=== PATIENT | male | born 1985 | race Caucasian/White ===

== ENCOUNTER 2017-08-25 13:06 | Emergency (ER) | payer SELFPAY ==
--- NOTE | 2017-08-25 15:20 | RAD REPORT ---
EXAM DESCRIPTION: RAD - Chest Single View - 08/25/2017 3:13 pm CLINICAL HISTORY: Chest pain, cough and congestion COMPARISON: None. TECHNIQUE: AP portable chest image was obtained 1505 hours . FINDINGS: Lungs are clear. Heart and vasculature are normal. No measurable pleural effusion and no p neumothorax. No gross bony abnormality seen. No acute aortic findings suspected. IMPRESSION: No acute cardiopulmonary process. No significant interval change.
[2017-08-25 16:13] LABS: Albumin 5.1 g/dL (3.2-5.5)
[2017-08-25 16:16] LABS: Absolute Monocytes 0.8 K/uL (0.1-1.3); Absolute Neutrophil 10.5 K/uL (1.8-8.0); Basophils % 0.2 % (0-1.3); Eosinophils % 0.3 % (0-4.4); Hematocrit 46.6 % (39.6-49.0); Lymphocytes % 8.4 % (15.3-44.8); MCH 28.5 pg (27.0-35.0); MCV 85.3 fL (80-100); Monocytes % 6.6 % (3.3-12.3); Protime INR 0.96; RBC Red Blood Cell Count 5.46 M/uL (4.33-5.43)
[2017-08-25 16:17] LABS: Potassium 3.6 mEq/L (3.6-5.0)
--- NOTE | 2017-08-25 17:04 | ER ---
Nurse's Notes [facility] Name: Emiliano Boothe Age: 31 yrs Sex: Male : 1985 Arrival Date: 08/25/2017 Time: 13:10 Bed 30 Private MD: Diagnosis: Chest pain, unspecified Presentation: 08/25 13:25 Presenting complaint: Patient states: R anterior chest pain that is worse when taking a ph deep breath. Pain is worse on palpation. "It might be a pulled muscle or something.". Transition of care: patient was not received from another setting of care. Onset of symptoms was August 23, 2017. Care prior to arrival: None. 13:25 Method Of Arrival: Ambulatory ph 13:25 Acuity: JEFFRY 3 ph Historical: - Allergies: 13:28 No Known Allergies; ph - Immunization history:: Adult Immunizations up to date. - Social history:: Smoking status: Patient/guardian denies using tobacco. Screenin:05 Abuse screen: Denies threats or abuse. Nutritional screening: No deficits noted. rk2 Tuberculosis screening: No symptoms or risk factors identified. Fall Risk None identified. Assessment: 16:06 General: Appears in no apparent distress. slender, well groomed, emaciated, well rk2 nourished, Behavior is calm, cooperative. Pain: Pain does not radiate. Pain began gradually. Neuro: Level of Consciousness is alert, obeys commands, Oriented to person, place, time, situation. Cardiovascular: Rhythm is sinus rhythm. Respiratory: Airway is patent Respiratory effort is even, unlabored, Respiratory pattern is regular, symmetrical. Derm: Skin is pink, warm \\T\\ dry. 16:30 Reassessment: Pt. resting in room, mother \\T\\ bedside... pt. appears to be in no obvious rk2 distress. Voiced no needs \\T\\ this time. 17:26 Reassessment: Reviewed DC instructions and prescriptions with pt... IV removed. Pt. rk2 able to ambulate out on his own without difficulty. Vital Signs: 13:28 BP 116 / 79; Pulse 80; Resp 16; Temp 98.2(TE); Pulse Ox 100% on R/A; Weight 63.5 kg; ph Height 5 ft. 9 in. (175.26 cm); Pain 6/10; 16:30 BP 115 / 73; Pulse 84; Resp 16; Pulse Ox 100% on R/A; rk2 17:27 BP 111 / 73; Pulse 84; Resp 16; Pulse Ox 99% ; rk2 13:28 Body Mass Index 20.67 (63.50 kg, 175.26 cm) ED Course: 13:10 Patient arrived in ED. as 13:27 Triage completed. ph 13:28 Arm band placed on left wrist. ph 15:09 Malik Sanchez NP is PHCP. pm1 15:09 Lalit Manrique MD is Attending Physician. pm1 15:10 Patient moved to radiology. kp1 15:11 Patient moved back from radiology. kp1 15:14 Carissa Bravo, MARTHA is Primary Nurse. rk2 16:05 Patient has correct armband on for positive identification. Bed in low position. Call rk2 light in reach. lunchroom monitor on. Pulse ox on. 16:05 Inserted saline lock: 20 gauge in left antecubital area, using aseptic technique. rk2 Patient maintains SpO2 saturation greater than 95% on room air. 16:12 D-Dimer Sent. rk2 16:13 XRAY Chest (1 view) Sent. rk2 16:47 BNP Sent. rk2 16:47 CMP Sent. rk2 16:47 Ptt, Activated Sent. rk2 16:47 PT-INR Sent. rk2 16:47 CBC with Diff Sent. rk2 17:27 No provider procedures requiring assistance completed. IV discontinued. rk2 Administered Medications: No medications were administered Outcome: 17:04 Discharge ordered by . pm1 17:27 Discharged to home ambulatory. rk2 17:27 Condition: good 17:27 Discharge instructions given to patient, Prescriptions given X 2. 17:28 Patient left the ED. rk2 Signatures: Batsheva Culp Patricia, RN RN Malik Sanchez NP HOSTESS CASHIER pm1 Flower Franco kp1 Carissa Bravo, MARTHA RN rk2
--- NOTE | 2017-08-25 17:04 | EDPHYS ---
Physician Documentation [facility] Name: Emiliano Boothe Age: 31 yrs Sex: Male : 1985 Arrival Date: 08/25/2017 Time: 13:10 Bed 30 Private MD: ED Physician Lalit Manrique HPI: 08/25 15:51 This 31 yrs old Male presents to ER via Ambulatory with complaints of Chest pm1 Pain, Shortness Of Breath. 15:51 The patient or guardian reports chest pain that is located primarily in the anterior pm1 chest wall, right. The pain does not radiate. Associated signs and symptoms: Pertinent positives: cough, shortness of breath, Pertinent negatives: abdominal pain, dizziness, headache, nausea, palpitations, vomiting. The chest pain is described as sharp. Modifying factors: the symptoms are aggravated by deep breath, palpation of area, Moving right arm. The patient has not recently seen a physician, out of town, in [place]. Historical: - Allergies: 13:28 No Known Allergies; ph - Immunization history:: Adult Immunizations up to date. - Social history:: Smoking status: Patient/guardian denies using tobacco. ROS: 15:51 Constitutional: Negative for fever, chills, and weight loss, Eyes: Negative for injury, pm1 pain, redness, and discharge, ENT: Negative for injury, pain, and discharge, Neck: Negative for injury, pain, and swelling. 15:51 Abdomen/GI: Negative for abdominal pain, nausea, vomiting, diarrhea, and constipation, Back: Negative for injury and pain, : Negative for injury, bleeding, discharge, and swelling, MS/Extremity: Negative for injury and deformity, Skin: Negative for injury, rash, and discoloration, Neuro: Negative for headache, weakness, numbness, tingling, and seizure. 15:51 Cardiovascular: Positive for chest pain, Negative for edema, palpitations. 15:51 Respiratory: Positive for cough, shortness of breath, Pain with deep breathing, Negative for dyspnea on exertion. Exam: 15:51 Constitutional: This is a well developed, well nourished patient who is awake, alert, pm1 and in no acute distress. Head/Face: Normocephalic, atraumatic. Neck: Trachea midline, no thyromegaly or masses palpated, and no cervical lymphadenopathy. Supple, full range of motion without nuchal rigidity, or vertebral point tenderness. No Meningismus. 15:51 Cardiovascular: Regular rate and rhythm with a normal S1 and S2. No gallops, murmurs, or rubs. Normal PMI, no JVD. No pulse deficits. Respiratory: Lungs have equal breath sounds bilaterally, clear to auscultation and percussion. No rales, rhonchi or wheezes noted. No increased work of breathing, no retractions or nasal flaring. Abdomen/GI: Soft, non-tender, with normal bowel sounds. No distension or tympany. No guarding or rebound. No evidence of tenderness throughout. Back: No spinal tenderness. No costovertebral tenderness. Full range of motion. Skin: Warm, dry with normal turgor. Normal color with no rashes, no lesions, and no evidence of cellulitis. MS/ Extremity: Pulses equal, no cyanosis. Neurovascular intact. Full, normal range of motion. 15:51 Neuro: Awake and alert, GCS 15, oriented to person, place, time, and situation. Motor strength 5/5 in all extremities. Sensory grossly intact. Normal gait. 15:51 Chest/axilla: Inspection: normal, Palpation: crepitus, is not appreciated, tenderness, of the anterior aspect of right upper chest, that totally reproduces the patient's complaints. Vital Signs: 13:28 BP 116 / 79; Pulse 80; Resp 16; Temp 98.2(TE); Pulse Ox 100% on R/A; Weight 63.5 kg; ph Height 5 ft. 9 in. (175.26 cm); Pain 6/10; 16:30 BP 115 / 73; Pulse 84; Resp 16; Pulse Ox 100% on R/A; rk2 17:27 BP 111 / 73; Pulse 84; Resp 16; Pulse Ox 99% ; rk2 13:28 Body Mass Index 20.67 (63.50 kg, 175.26 cm) ph MDM: 15:16 Patient medically screened. pm1 16:20 Data reviewed: vital signs. pm1 17:03 Data interpreted: Pulse oximetry: on room air is 100 %. Interpretation: normal. pm1 Counseling: I had a detailed discussion with the patient and/or guardian regarding: the historical points, exam findings, and any diagnostic results supporting the discharge/admit diagnosis, lab results, radiology results, the need for outpatient follow up, to return to the emergency department if symptoms worsen or persist or if there are any questions or concerns that arise at home. 08/25 15:25 Order name: Ptt, Activated pm1 08/25 15:25 Order name: PT-INR pm08/25 15:25 Order name: CBC with Diff pm1 08/25 15:25 Order name: Troponin (emerg Dept Use Only) pm1 08/25 15:25 Order name: CMP pm1 08/25 15:25 Order name: BNP pm1 08/25 15:59 Order name: D-Dimer pm1 08/25 16:10 Order name: Comprehensive Metabolic Panel; Complete Time: 17:02 EDMS 08/25 16:17 Order name: Protime (+INR); Complete Time: 17:02 EDMS 08/25 16:17 Order name: PTT, Activated Partial Thromb; Complete Time: 17:02 EDMS 08/25 16:17 Order name: D-Dimer; Complete Time: 17:02 EDMS 08/25 16:17 Order name: Troponin (Emerg Dept Use Only); Complete Time: 17:02 EDMS 08/25 16:20 Order name: BNP B-Type Natriuretic Peptide; Complete Time: 17:02 EDMS 08/25 16:23 Order name: CBC with Automated Diff; Complete Time: 17:02 EDMS 08/25 13:29 Order name: XRAY Chest (1 view) 08/25 15:20 Order name: RAD; Complete Time: 15:23 EDMS 08/25 15:25 Order name: EKG; Complete Time: 15:26 pm1 08/25 15:25 Order name: Cardiac monitoring; Complete Time: 15:51 pm1 08/25 15:25 Order name: EKG - Nurse/Tech; Complete Time: 16:56 pm1 08/25 15:25 Order name: IV Saline Lock; Complete Time: 15:51 pm1 08/25 15:25 Order name: Labs collected and sent; Complete Time: 15:51 pm1 08/25 15:25 Order name: O2 Per Protocol; Complete Time: 15:51 pm1 08/25 15:25 Order name: O2 Sat Monitoring; Complete Time: 15:51 pm1 Administered Medications: No medications were administered Disposition: 08/25/17 17:04 Discharged to Home. Impression: Chest pain, unspecified. - Condition is Stable. - Discharge Instructions: Nonspecific Chest Pain, Chest Wall Pain. - Prescriptions for Naprosyn 500 mg Oral Tablet - take 1 tablet by ORAL route every 12 hours As needed take with food; 30 tablet. Cyclobenzaprine 10 mg Oral Tablet - take 1 tablet by ORAL route every 8 hours As needed; 30 tablet. - Medication Reconciliation Form, Thank You Letter form. - Follow up: Emergency Department; When: As needed; Reason: Worsening of condition. Follow up: Private Physician; When: 2 - 3 days; Reason: Recheck today's complaints, Continuance of care, Re-evaluation by your physician. - Problem is new. - Symptoms have improved. Addendum: 08/29/2017 07:24 Co-signature as Attending Physician, Lalit Manrique MD. g s Signatures: Dispatcher [employer] EDME Bryanna Mcdaniels, RN RN Malik Segura, KARLA [employer] INSULATION SUPERVISOR pm1 Lalit Manrique MD MD Carissa Bravo RN RN rk2
--- NOTE | 2017-08-25 20:08 | EKG ---
Test Date: 2017-08-25 Test Time: 16:00:41 Therapeutic Radiologist: DIEGO MEASUREMENT RESULTS: Intervals: Rate: 89 OK: 140 QRSD: 84 QT: 358 QTc: 435 [place]: P: 62 OK: 140 QRS: 25 T: 53 INTERPRETIVE STATEMENTS: Normal sinus rhythm with sinus arrhythmia Normal ECG No previous ECG available for comparison Electronically Signed On 08-25-17 20:07:48 CDT by Iggy Perez
== END 2017-08-25 17:28 | disposition home or self-care (01) ==
LOC: ER 13:06
DX: R07.9 Chest pain, unspecified (principal)
CPT/HCPCS: 36415; 71045; 80053; 83880; 84484; 85025; 85379; 85610; 85730; 93005; 99285

== ENCOUNTER 2019-03-08 18:00 | Emergency (ER) | payer SELFPAY ==
[2019-03-08 20:24] LABS: Urine Blood TRACE (NEG); Urine Glucose NEGATIVE (NEG); Urine Protein NEGATIVE (NEG); Urine Specific Gravity <1.005 (1.005-1.030)
[2019-03-08] MEDS ORDERED: LACTULOSE 20 GM/30 ML UCUP ONE (20:54)
--- NOTE | 2019-03-08 22:36 | ER ---
Nurse's Notes [facility] Name: Emiliano Boothe Age: 33 yrs Sex: Male : 1985 Arrival Date: 03/08/2019 Time: 18:04 Bed 26 Private MD: Diagnosis: Constipation, unspecified Presentation: 03/08 18:13 Presenting complaint: Patient states: Abdominal pain since Saturday. Reports aj1 constipation and bloating. Denies nausea, vomiting, fever. Transition of care: patient was not received from another setting of care. Onset of symptoms was March 2019. Risk Assessment: Do you want to hurt yourself or someone else? Patient reports no desire to harm self or others. Initial Sepsis Screen: Does the patient meet any 2 criteria? No. Patient's initial sepsis screen is negative. Does the patient have a suspected source of infection? No. Patient's initial sepsis screen is negative. Care prior to arrival: None. 18:13 Method Of Arrival: Ambulatory aj 18:13 Acuity: JEFFRY 3 aj1 Triage Assessment: 18:17 General: Appears in no apparent distress. comfortable, Behavior is calm, cooperative, aj1 appropriate for age. Pain: Complains of pain in abdomen Pain currently is 2 out of 10 on a pain scale. Neuro: Level of Consciousness is awake, alert, obeys commands. Cardiovascular: Patient's skin is warm and dry. Respiratory: Airway is patent Respiratory effort is even, unlabored, Respiratory pattern is regular, symmetrical. GI: Reports upper abdominal pain, bloating, constipation. Historical: - Allergies: 18:17 No Known Allergies; aj1 - Home Meds: 18:17 Claritin Oral [Active]; aj1 - PMHx: 18:17 GERD; bicuspid aorta; aj1 - Immunization history:: Flu vaccine is not up to date. - Social history:: Smoking status: Patient/guardian denies using tobacco. - Ebola Screening: : Patient denies travel to an Ebola-affected area in the 21 days before illness onset. Screenin:36 Abuse screen: Denies threats or abuse. Denies injuries from another. Nutritional wh screening: No deficits noted. Tuberculosis screening: No symptoms or risk factors identified. Fall Risk None identified. Assessment: 19:37 General: Appears in no apparent distress. Behavior is calm, cooperative, appropriate wh for age. Pain: Denies pain. Neuro: Level of Consciousness is awake, alert, obeys commands. Cardiovascular: Heart tones S1 S2. Respiratory: Airway is patent Respiratory effort is even, unlabored, Respiratory pattern is regular, symmetrical, Breath sounds are clear bilaterally. GI: Abdomen is flat, non-distended, Bowel sounds present X 4 quads. Abd is soft and non tender X 4 quads. Reports on and off constipation and diarrhea. : No signs and/or symptoms were reported regarding the genitourinary system. EENT: No signs and/or symptoms were reported regarding the EENT system. Derm: Skin is intact, is healthy with good turgor, Skin is pink, warm \T\ dry. normal. Musculoskeletal: Circulation, motion, and sensation intact. 20:45 Reassessment: Patient appears in no apparent distress at this time. No changes from previously documented assessment. Patient and/or family updated on plan of care and expected duration. Pain level reassessed. Patient is alert, oriented x 3, equal unlabored respirations, skin warm/dry/pink. Patient denies pain at this time. 21:30 Reassessment: Patient appears in no apparent distress at this time. No changes from previously documented assessment. Patient and/or family updated on plan of care and expected duration. Pain level reassessed. Patient is alert, oriented x 3, equal unlabored respirations, skin warm/dry/pink. Patient denies pain at this time. 22:29 Reassessment: Patient appears in no apparent distress at this time. No changes from previously documented assessment. Patient and/or family updated on plan of care and expected duration. Pain level reassessed. Patient is alert, oriented x 3, equal unlabored respirations, skin warm/dry/pink. Vital Signs: 18:17 BP 113 / 72; Pulse 77; Resp 16; Temp 98.0; Pulse Ox 100% on R/A; Weight 63.96 kg (R); aj1 Height 5 ft. 9 in. (175.26 cm) (R); Pain 2/10; 19:39 BP 111 / 65; Pulse 76; Resp 18; Pulse Ox 100% on R/A; wh 20:30 BP 108 / 73; Pulse 75; Resp 18; Pulse Ox 100% on R/A; wh 21:20 BP 120 / 70; Pulse 75; Resp 18; Pulse Ox 100% on R/A; mg2 22:30 BP 112 / 78; Pulse 71; Resp 18; Pulse Ox 100% on R/A; wh 18:17 Body Mass Index 20.82 (63.96 kg, 175.26 cm) [facility] ED Course: 18:04 Patient arrived in ED. as 18:16 Triage completed. aj1 18:17 Arm band placed on Patient placed in waiting room, Patient notified of wait time. [facility] 19:05 Courtney Parker is Primary Nurse. 19:24 Terrence Beauchamp MD is Attending Physician. tw4 19:36 Patient has correct armband on for positive identification. Bed in low position. Call light in reach. Side rails up X 1. Pulse ox on. NIBP on. 22:19 Abdomen 1 View (KUB) XRAY In Process Unspecified. EDMI 22:35 Terrence Beauchamp MD is Referral Physician. tw4 22:44 No provider procedures requiring assistance completed. Patient did not have IV access during this emergency room visit. Administered Medications: 20:54 Drug: Lactulose 20 grams Volume: 30 ml; Route: PO; 22:44 Follow up: Response: No adverse reaction Outcome: 22:36 Discharge ordered by . tw4 22:44 Discharged to home ambulatory, with family. 22:44 Condition: good 22:44 Discharge instructions given to patient, Instructed on discharge instructions, follow up and referral plans. medication usage, POC Constipation and High Fiber Diet Demonstrated understanding of instructions, follow-up care, medications, POC Prescriptions given X 2. 22:45 Patient left the ED. Signatures: Dispatcher [employer] EDMI Harriett Fierro, RN RN aj1 Batsheva Culp as Courtney Parker Terrence Beauchamp MD MD tw4 Antonio James RN RN mg2
--- NOTE | 2019-03-08 22:36 | EDPHYS ---
Physician Documentation [facility] Name: Emiliano Boothe Age: 33 yrs Sex: Male : 1985 Arrival Date: 03/08/2019 Time: 18:04 Bed 26 Private MD: ED Physician Terrence Beauchamp HPI: 03/08 22:09 This 33 yrs old Male presents to ER via Ambulatory with complaints of tw4 Abdominal Problem. 22:09 The patient presents with abdominal pain that is diffuse. Onset: The symptoms/episode tw4 began/occurred yesterday. The symptoms do not radiate. Modifying factors: The symptoms are alleviated by nothing, the symptoms are aggravated by nothing. Severity of pain: Pertinent positives: constipation, At its worst the pain was mild. Historical: - Allergies: 18:17 No Known Allergies; aj1 - Home Meds: 18:17 Claritin Oral [Active]; aj1 - PMHx: 18:17 GERD; bicuspid aorta; aj1 - Immunization history:: Flu vaccine is not up to date. - Social history:: Smoking status: Patient/guardian denies using tobacco. - Ebola Screening: : Patient denies travel to an Ebola-affected area in the 21 days before illness onset. ROS: 22:09 Constitutional: Negative for fever, chills, and weight loss, Eyes: Negative for injury, tw4 pain, redness, and discharge, ENT: Negative for injury, pain, and discharge, Cardiovascular: Negative for chest pain, palpitations, and edema, Respiratory: Negative for shortness of breath, cough, wheezing, and pleuritic chest pain, Back: Negative for injury and pain, MS/Extremity: Negative for injury and deformity, Skin: Negative for injury, rash, and discoloration, Neuro: Negative for headache, weakness, numbness, tingling, and seizure. 22:09 Abdomen/GI: Positive for constipation, Negative for abdominal pain, nausea and vomiting, nausea, vomiting, and diarrhea, nausea, vomiting, abdominal cramps, abdominal distension, anorexia, dysphagia, black/tarry stool, rectal pain, rectal bleeding, bowel incontinence. Exam: 22:09 Constitutional: This is a well developed, well nourished patient who is awake, alert, tw4 and in no acute distress. Head/Face: Normocephalic, atraumatic. Chest/axilla: Normal chest wall appearance and motion. Nontender with no deformity. No lesions are appreciated. Cardiovascular: Regular rate and rhythm with a normal S1 and S2. No gallops, murmurs, or rubs. Normal PMI, no JVD. No pulse deficits. Respiratory: Lungs have equal breath sounds bilaterally, clear to auscultation and percussion. No rales, rhonchi or wheezes noted. No increased work of breathing, no retractions or nasal flaring. MS/ Extremity: Pulses equal, no cyanosis. Neurovascular intact. Full, normal range of motion. Neuro: Awake and alert, GCS 15, oriented to person, place, time, and situation. Cranial nerves II-XII grossly intact. Motor strength 5/5 in all extremities. Sensory grossly intact. Cerebellar exam normal. Normal gait. Vital Signs: 18:17 BP 113 / 72; Pulse 77; Resp 16; Temp 98.0; Pulse Ox 100% on R/A; Weight 63.96 kg (R); 1 Height 5 ft. 9 in. (175.26 cm) (R); Pain 2/10; 19:39 BP 111 / 65; Pulse 76; Resp 18; Pulse Ox 100% on R/A; wh 20:30 BP 108 / 73; Pulse 75; Resp 18; Pulse Ox 100% on R/A; wh 21:20 BP 120 / 70; Pulse 75; Resp 18; Pulse Ox 100% on R/A; mg2 22:30 BP 112 / 78; Pulse 71; Resp 18; Pulse Ox 100% on R/A; wh 18:17 Body Mass Index 20.82 (63.96 kg, 175.26 cm) [facility] MDM: 19:24 Patient medically screened. tw4 03/08 19:43 Order name: Urine Dipstick--Ancillary (enter results) em1 03/08 20:48 Order name: Abdomen 1 View (KUB) XRAY tw4 03/08 19:43 Order name: Urine Dipstick-Ancillary (obtain specimen); Complete Time: 19:43 em1 Administered Medications: 20:54 Drug: Lactulose 20 grams Volume: 30 ml; Route: PO; 22:44 Follow up: Response: No adverse reaction Disposition: 03/08/19 22:36 Discharged to Home. Impression: Constipation, unspecified. - Condition is Stable. - Discharge Instructions: Constipation, Adult, High-Fiber Diet. - Prescriptions for Dulcolax 10 mg Rectal Suppository - insert 1 suppository by RECTAL route every 6 hours As needed; 10 suppository. Miralax 17 gram/dose Oral - take 1 packet by ORAL route once daily dilute powder in 8 ounces of water or juice; 1 packet. - Medication Reconciliation Form, Thank You Letter, Antibiotic Education, Prescription Opioid Use form. - Follow up: Terrence Beauchamp MD; When: Upon discharge from the Emergency Department; Reason: If symptoms return, Recheck today's complaints, Continuance of care. - Problem is new. - Symptoms are unchanged. Signatures: Dispatcher [employer] EDMS Harriett Fierro RN RN archie1 Praveen Culp Courtney Sosa Terrence Beauchamp MD MD tw4 Corrections: (The following items were deleted from the chart) 22:45 22:36 03/08/2019 22:36 Discharged to Home. Impression: Constipation, unspecified. wh Condition is Stable. Forms are Medication Reconciliation Form, Thank You Letter, Antibiotic Education, Prescription Opioid Use. Follow up: Terrence Beauchamp; When: Upon discharge from the Emergency Department; Reason: If symptoms return, Recheck today's complaints, Continuance of care. Problem is new. Symptoms are unchanged. tw4
[2019-03-08 22:55] VITALS: TEMP 98; O2SAT 100
[2019-03-08 23:00] VITALS: BP 112/78
--- NOTE | 2019-03-09 09:14 | RAD REPORT ---
EXAM DESCRIPTION: RAD - Abdomen 1 View (KUB) - 03/08/2019 10:30 pm CLINICAL HISTORY: ABD PAIN COMPARISON: No comparisons FINDINGS: Bowel gas pattern is non-specific. No obstruction, free air or pneumatosis. No suspicious calcifications. No abnormal stool volume in the colon. No significant bony findings IMPRESSION: Negative KUB examination.
== END 2019-03-08 22:45 | disposition home or self-care (01) ==
LOC: ER 18:00
DX: K59.00 Constipation, unspecified (principal)
CPT/HCPCS: 74018; 81003; 99284

== ENCOUNTER 2019-03-11 13:54 | Emergency (ER) | payer SELFPAY ==
--- NOTE | 2019-03-11 15:30 | RAD REPORT ---
EXAM DESCRIPTION: Luis Carlos Hammer (2 Views)03/11/2019 3:03 pm CLINICAL HISTORY: Cough COMPARISON: 2018 FINDINGS: The lungs are mildly hyperaerated The lungs appear clear of acute infiltrate. The heart is normal size IMPRESSION: No acute abnormalities displayed
[2019-03-11 15:52] LABS: Potassium 3.3 mmol/L (3.5-5.1)
[2019-03-11 16:01] LABS: Urine Blood NEGATIVE (NEG); Urine Glucose NEGATIVE (NEG); Urine Protein NEGATIVE (NEG); Urine Specific Gravity <1.005 (1.005-1.030)
[2019-03-11 16:21] LABS: Absolute Lymphocytes (CBC) 0.9 K/uL (0.7-4.9); Basophils % 0.5 % (0-1.3); Hematocrit 45.2 % (39.6-49.0); Lymphocytes % 12.6 % (15.3-44.8); MPV 8.5 fL (7.6-11.3)
--- NOTE | 2019-03-11 16:31 | ER ---
Nurse's Notes [facility] Name: Emiliano Boothe Age: 33 yrs Sex: Male : 1985 Arrival Date: 03/11/2019 Time: 13:55 Bed 15 Private MD: Diagnosis: Person with feared health complaint in whom no diagnosis is made;Dyspnea Presentation: 03/11 14:01 Presenting complaint: Patient states: "I was seen here a few days ago for abdominal aa5 bloating and I am still feeling the same and now I am short of breath". Pt's mother also reports cough that began "years ago". Transition of care: patient was not received from another setting of care. Onset of symptoms was 2018. Risk Assessment: Do you want to hurt yourself or someone else? Patient reports no desire to harm self or others. Initial Sepsis Screen: Does the patient meet any 2 criteria? No. Patient's initial sepsis screen is negative. Does the patient have a suspected source of infection? No. Patient's initial sepsis screen is negative. Care prior to arrival: None. 14:01 Acuity: JEFFRY 3 aa5 14:01 Method Of Arrival: Ambulatory aa5 Historical: - Allergies: 14:03 No Known Allergies; aa5 - Home Meds: 14:03 Miralax Oral [Active]; Claritin Oral [Active]; aa5 - PMHx: 14:03 bicuspid aorta; GERD; aa5 - PSHx: 14:03 None; aa5 - Immunization history:: Flu vaccine is not up to date. - Social history:: Smoking status: Patient/guardian denies using tobacco. - Ebola Screening: : No symptoms or risks identified at this time. Screenin:40 Abuse screen: Denies threats or abuse. Denies injuries from another. Nutritional jl7 screening: No deficits noted. Tuberculosis screening: No symptoms or risk factors identified. Fall Risk IV access (20 points). Total Valle Fall Scale indicates No Risk (0-24 pts). Assessment: 15:25 General: Appears in no apparent distress. uncomfortable, slender, Behavior is calm, jl7 cooperative. Pain: Denies pain. Neuro: Level of Consciousness is awake, alert, obeys commands. Cardiovascular: Rhythm is regular. Respiratory: Reports cough that is non-productive, Airway is patent Respiratory effort is even, unlabored, Respiratory pattern is regular, symmetrical, Breath sounds are clear bilaterally. GI: Abdomen is flat, non-distended. : Reports burning with urination, inability to void. Derm: Skin is dry, Skin is pale, Skin temperature is warm. 16:25 Reassessment: Patient appears in no apparent distress at this time. No changes from jl7 previously documented assessment. Patient and/or family updated on plan of care and expected duration. Pain level reassessed. Patient is alert, oriented x 3, equal unlabored respirations, skin warm/dry/pink. Vital Signs: 14:03 BP 113 / 70; Pulse 90; Resp 16 S; Temp 98.0(TE); Pulse Ox 100% on R/A; Weight 63.5 kg aa5 (R); Height 5 ft. 9 in. (175.26 cm) (R); Pain 5/10; 15:40 BP 105 / 68; Pulse 81; Resp 16 S; Pulse Ox 98% on R/A; jl7 14:03 Body Mass Index 20.67 (63.50 kg, 175.26 cm) aa5 ED Course: 13:55 Patient arrived in ED. as 14:01 Arm band placed on. aa5 14:02 Triage completed. aa5 14:28 Mart Wing PA is PHCP. jr8 14:28 Desmond Woody MD is Attending Physician. jr8 14:48 Elis Sandoval RN is Primary Nurse. jl7 15:00 Patient moved to radiology via wheelchair. jb2 15:00 X-ray completed. Patient tolerated procedure well. Patient moved back from radiology. jb2 15:01 XRAY Chest Pa And Lat (2 Views) In Process Unspecified. EDMS 15:40 Patient has correct armband on for positive identification. Bed in low position. Call jl7 light in reach. Side rails up X 1. Pulse ox on. NIBP on. 15:40 Initial lab(s) drawn, by me, sent to lab. Urine collected: clean catch specimen, clear. jl7 Inserted saline lock: 22 gauge in right antecubital area, using aseptic technique. Blood collected. 16:48 No provider procedures requiring assistance completed. IV discontinued, intact, jl7 bleeding controlled, No redness/swelling at site. Pressure dressing applied. Administered Medications: 16:46 Drug: Potassium Chloride 20 mEq Route: PO; jl7 16:46 Follow up: Response: Medication administered at discharge. jl7 Outcome: 16:30 Discharge ordered by . jr8 16:48 Discharged to home ambulatory, with family. jl7 16:48 Condition: stable 16:48 Discharge instructions given to patient, family, Instructed on discharge instructions, follow up and referral plans. Demonstrated understanding of instructions, follow-up care. 16:49 Patient left the ED. jl7 Signatures: Dispatcher [employer] EDWA Ad Davis Amelia as Calderon, Audri, RN RN aa5 Mart Wing PA PA jr8 Elis Sandoval RN RN jl7 Corrections: (The following items were deleted from the chart) 16:48 16:25 No provider procedures requiring assistance completed. jl7 jl7 16:48 16:25 IV discontinued, intact, bleeding controlled, No redness/swelling at site. jl7 Pressure dressing applied, jl7
--- NOTE | 2019-03-11 16:31 | EDPHYS ---
Physician Documentation [facility] Name: Emiliano Boothe Age: 33 yrs Sex: Male : 1985 Arrival Date: 03/11/2019 Time: 13:55 Bed 15 Private MD: ED Physician Desmond Woody HPI: 03/11 15:22 This 33 yrs old Male presents to ER via Ambulatory with complaints of jr8 Shortness Of Breath, Abdominal bloating. 15:22 Pt has been having ongoing problems for the last twelve years and seen "over 100" 8 doctors. Today presents with complaint of an episode of having trouble catching his breath at home and the sensation of dry mouth and abd bloating. . Historical: - Allergies: 14:03 No Known Allergies; aa5 - Home Meds: 14:03 Miralax Oral [Active]; Claritin Oral [Active]; aa5 - PMHx: 14:03 bicuspid aorta; GERD; aa5 - PSHx: 14:03 None; aa5 - Immunization history:: Flu vaccine is not up to date. - Social history:: Smoking status: Patient/guardian denies using tobacco. - Ebola Screening: : No symptoms or risks identified at this time. ROS: 15:22 Constitutional: Negative for fever, chills, and weight loss, Eyes: Negative for injury, jr8 pain, redness, and discharge, Neck: Negative for injury, pain, and swelling, Cardiovascular: Negative for chest pain, palpitations, and edema, Respiratory: Negative for shortness of breath, cough, wheezing, and pleuritic chest pain, Abdomen/GI: Negative for abdominal pain, nausea, vomiting, diarrhea, and constipation, Back: Negative for injury and pain, MS/Extremity: Negative for injury and deformity, Neuro: Negative for headache, weakness, numbness, tingling, and seizure. 15:22 ENT: Positive for dry mouth. Exam: 15:22 Constitutional: This is a well developed, well nourished patient who is awake, alert, jr8 and in no acute distress. Head/Face: Normocephalic, atraumatic. Eyes: Pupils equal round and reactive to light, extra-ocular motions intact. Lids and lashes normal. Conjunctiva and sclera are non-icteric and not injected. Cornea within normal limits. Periorbital areas with no swelling, redness, or edema. ENT: MMM Neck: Trachea midline, no thyromegaly or masses palpated, and no cervical lymphadenopathy. Supple, full range of motion without nuchal rigidity, or vertebral point tenderness. No Meningismus. Chest/axilla: Normal chest wall appearance and motion. Nontender with no deformity. No lesions are appreciated. Cardiovascular: Regular rate and rhythm with a normal S1 and S2. No gallops, murmurs, or rubs. Normal PMI, no JVD. No pulse deficits. Respiratory: Lungs have equal breath sounds bilaterally, clear to auscultation and percussion. No rales, rhonchi or wheezes noted. No increased work of breathing, no retractions or nasal flaring. Abdomen/GI: Soft, non-tender, with normal bowel sounds. No distension or tympany. No guarding or rebound. No evidence of tenderness throughout. Back: No spinal tenderness. No costovertebral tenderness. Full range of motion. Skin: Warm, dry with normal turgor. Normal color with no rashes, no lesions, and no evidence of cellulitis. MS/ Extremity: Pulses equal, no cyanosis. Neurovascular intact. Full, normal range of motion. Neuro: Awake and alert, GCS 15, oriented to person, place, time, and situation. Sensory grossly intact. Cerebellar exam normal. Normal gait. Vital Signs: 14:03 BP 113 / 70; Pulse 90; Resp 16 S; Temp 98.0(TE); Pulse Ox 100% on R/A; Weight 63.5 kg aa5 (R); Height 5 ft. 9 in. (175.26 cm) (R); Pain 5/10; 15:40 BP 105 / 68; Pulse 81; Resp 16 S; Pulse Ox 98% on R/A; jl7 14:03 Body Mass Index 20.67 (63.50 kg, 175.26 cm) aa5 MDM: 14:31 Patient medically screened. [facility] 16:27 Data reviewed: vital signs, nurses notes, lab test result(s), radiologic studies, and jr8 as a result, I will discharge patient. Data interpreted: Pulse oximetry: on room air is 98 %. Interpretation: normal. Counseling: I had a detailed discussion with the patient and/or guardian regarding: the historical points, exam findings, and any diagnostic results supporting the discharge/admit diagnosis, lab results, radiology results, the need for outpatient follow up, a family practitioner. ED course: pt with no acute findings in labs or imagine or exam findings. Pt verbalizes understanding for need for outpatient FU with PCP and other specialist as necessary . 03/11 14:43 Order name: CBC with Diff; Complete Time: 16:25 8 03/11 14:43 Order name: Basic Metabolic Panel; Complete Time: 16:05 jr8 03/11 14:43 Order name: XRAY Chest Pa And Lat (2 Views); Complete Time: 15:33 jr8 03/11 14:54 Order name: Magnesium; Complete Time: 16:05 jr8 03/11 15:43 Order name: Urine Dipstick--Ancillary (enter results); Complete Time: 16:05 gm 03/11 14:43 Order name: IV; Complete Time: 15:36 jr8 Administered Medications: 16:46 Drug: Potassium Chloride 20 mEq Route: PO; jl7 16:46 Follow up: Response: Medication administered at discharge. jl7 Disposition: 03/12 07:38 Co-signature as Attending Physician, Desmond Woody MD I agree with the assessment and junaid plan of care. Disposition: 03/11/19 16:30 Discharged to Home. Impression: Person with feared health complaint in whom no diagnosis is made, Dyspnea. - Condition is Stable. - Discharge Instructions: Shortness of Breath. - Medication Reconciliation Form, Thank You Letter form. - Follow up: Private Physician; When: As needed; Reason: Recheck today's complaints, Re-evaluation by your physician. - Problem is new. - Symptoms are unchanged. Signatures: Dispatcher [employer] Desmond Mckeon MD MD cha Calderon, Audri, RN RN aa5 Mart Wing PA PA jr8 Elis Sandoval RN RN jl7 Corrections: (The following items were deleted from the chart) 03/11 16:49 16:30 03/11/2019 16:30 Discharged to Home. Impression: Person with feared health jl7 complaint in whom no diagnosis is made; Dyspnea. Condition is Stable. Forms are Medication Reconciliation Form, Thank You Letter, Antibiotic Education, Prescription Opioid Use. Follow up: Private Physician; When: As needed; Reason: Recheck today's complaints, Re-evaluation by your physician. Problem is new. Symptoms are unchanged. jr8
[2019-03-11] MEDS ORDERED: POTASSIUM CL SA 10 MEQ TAB PO ONE (16:39)
[2019-03-11 16:54] VITALS: TEMP 98
[2019-03-11 16:56] VITALS: BP 105/68; O2SAT 98
== END 2019-03-11 16:49 | disposition home or self-care (01) ==
LOC: ER 13:54
DX: R06.00 Dyspnea, unspecified (principal); Z71.1 Person with feared health complaint in whom no diagnosis is made
CPT/HCPCS: 36415; 71046; 80048; 81003; 83735; 85025; 99284

== ENCOUNTER 2019-12-18 20:39 | Emergency (ER) | payer SELFPAY ==
--- OUTSIDE RECORDS SUMMARY | 2019-12-18 20:41 | XMS REPORT | Clinical Summary ---
:1985 Author Organization [facility] Address [address] [place] [address] Care Team Providers Name Role Phone MD Paul Primary Care Provider Allergies No Known Allergies Medications Medication Sig Dispensed Refills Start Date End Date Status benzonatate (TESSALON Take 100 mg by 0 05/21/2017 Active PERLES) 100 MG capsule mouth. cetirizine (ZyrTEC) 10 Take 10 mg by 0 04/19/2017 Active MG tablet mouth. fluticasone propionate 2 sprays into 0 04/19/2017 Active (FLONASE) 50 each nostril. mcg/actuation nasal spray naphazoline-pheniramine Apply 2 drops to 0 7 Active (NAPHCON-A) 0.025-0.3 % eye. ophthalmic solution Active Problems Problem Noted Date Dry eyes 11/10/2018 Dry mouth 11/10/2018 Orthopnea 11/10/2018 Family history of autoimmune disorder 11/10/2018 RAMIREZ positive 11/10/2018 Family History Medical History Relation Name Comments Lupus Cousin Polymyositis Cousin Hypertension Father Arthritis Maternal Grandfather Cancer Maternal Grandfather Depression Maternal Grandfather Heart disease Maternal Grandfather Hypertension Maternal Grandfather Vision loss Maternal Grandfather Heart disease Maternal Grandmother Stroke Maternal Grandmother Vision loss Maternal Grandmother Cancer Paternal Grandfather Depression Paternal Grandfather Heart disease Paternal Grandfather Vision loss Paternal Grandfather Asthma Paternal Grandmother Relation Name Status Comments Cousin Father Maternal Grandfather Maternal Grandmother Paternal Grandfather Paternal Grandmother Social History Tobacco Use Types Packs/Day Years Used Date Never Smoker Smokeless Tobacco: Never Used Alcohol Use Drinks/Week oz/Week Comments Never Alcohol Habits Answer Date Recorded How often do you have a drink containing alcohol? Never 11/10/2018 How many drinks containing alcohol do you have on a typical Not asked day when you are drinking? How often do you have six or more drinks on one occasion? No t asked Sex Assigned at Date Recorded Not on file Job Start Date Occupation Industry Not on file Not on file Not on file Travel History Travel Start Travel End No recent travel history available. 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
--- OUTSIDE RECORDS SUMMARY | 2019-12-18 20:42 | XMS REPORT | Summary of Care ---
:1985 Author Organization [facility] [place] Address [id number] [place] [address], [place] [address]- Encounter HQ Encntr_alias(FIN) [id number] Date(s): 12/15/19 - 12/16/19 [facility] [place] [id number] [place] [address] [place] [address]- [phone] Vital Signs No data available for this section Problem List Condition Effective Dates Status Health Status Informant Allergic bronchitis(Confirmed) Active Bicuspid aortic valve(Confirmed) Active Chronic fatigue syndrome(Confirmed) Active Depression(Confirmed) Active Fatigue1 02/11/12 Active H/O scarlet fever(Confirmed) Active Headache2 10/06/13 Active Hypogonadism3 02/11/12 Active RAD (reactive airway disease) with Active wheezing(Confirmed) Sjogrens syndrome(Confirmed) Active 1Data migrated from [employer] on 10/30/14.2Data migrated from [employer] on 10/30/14.3Data migrated from [employer] on 10/30/14. Allergies, Adverse Reactions, Alerts No Known Medication Allergies Medications No data available for this section Results No data available for this section Immunizations No data available for this section Procedures No data available for this section Social History Social History Type Response Alcohol 1 Exercise Exercise type: Walking.2 Substance Abuse 3 Smoking Status Never smoker; Type: Pipe; Ex posure to Tobacco Smoke None; Cigarette Smoking Last 365 Days No; Reg Smoking Cessation Counseling No entered on: 12/02/19 [id number] Assessment and Plan No data available for this section
--- OUTSIDE RECORDS SUMMARY | 2019-12-18 20:42 | XMS REPORT | Continuity of Care Document ---
:1985 Author Organization [email or web address] Care Team Providers Name Role Phone [email or web address] Unavailable Un available Problems Problem Status Onset Classification Date Comments Sourc e Date Reported Headache Active 10/07/19 Problem 12/18/2019 Data migrated Me dical (finding) 14 from [facility] Group,Misc Centricity on her Ne uro 10/30/14. Fatigue Active 02/11/20 Problem 12/18/2019 Data migrated Me dical (finding) 12 from Group,Misc Centricity on her Ne uro 10/30/14. Hypogonadism Active 02/11/20 Problem 12/18/2019 Data migrated Medical (disorder) 12 from Group,Mis c Centricity on her Ne uro 10/30/14. Bicuspid aortic Active Problem 12/18/2019 Medical valve (disorder) Jacob up,Misc her Neuro Chronic fatigue Active Problem 12/18/2019 Medical syndrome Group,Misc (disorder) her Neuro Depressive Active Problem 12/18/2019 Medic al disorder Group,Misc (disorder) her Neuro History of - Active Problem 12/18/2019 Med ical sc[place]atina Group,Mis c (context-depende her Neuro nt category) Reactive airway Active Problem 12/18/2019 Medical disease Group,Misc (disorder) her Neuro Sjgren's Active Problem 12/18/2019 Medica l syndrome Group,Misc (disorder) her Neuro Allergic Active Problem 12/18/2019 Medica l bronchitis Group (disorder) Medications Medication Details Route Status Patient Ordering Order Source Instructions Provider Date Hydrocortisone 10 2 drp, BOTH Active MG/ML / Neomycin EARS, QID, X 020 Me dical 3.5 MG/ML / 10 day, # 10 Group Polymyxin B 69824 ml, 0 UNT/ML Otic Refill(s), Solution Pharmacy: [facility] #[id number], 177.8, cm, 12/02/19 10:55:00 CDT, Height, 63.182, kg, 12/02/19 10:55:00 CDT, Weight cephalexin 500 mg 500 mg = 1 Active oral capsule cap, PO, 020 Medical TID, X 10 Group day, # 30 cap, 0 Refill(s), Pharmacy: [facility] #[id number], 177.8, cm, 12/02/19 10:55:00 CDT, Height, 63.182, kg, 12/02/19 10:55:00 CDT, Weight Azithromycin 5 See Active Day Dose Pack 250 Instructions 020 M edical mg oral tablet , Take 2 Group tablets by mouth the first day then 1 tablet by mouth days 2-5., X 5 day, # 6 tab, 0 Refill(s), Pharmacy: [facility] #[id number] albuterol 90 2 puff, Active mcg/inh INHALATION, 020 Medical inhalation Q6H, PRN for Group aerosol wheezing, # 9 gm, 0 Refill(s), Pharmacy: [facility] #[id number] benzonatate 100 100 mg = 1 Active mg oral capsule cap, PO, 020 Medical TID, do not Group crush or chew, X 10 day, # 30 cap, 0 Refill(s), Pharmacy: [facility] #[id number] cetirizine 10 mg 10 mg = 1 Active oral tablet tab, PO, 018 Medical Daily, # 30 Group tab, 3 Refill(s), other omeprazole 20 mg 20 mg = 1 Active oral enteric tab, PO, 018 Medical coated tablet BID, # 30 Group tab, 0 Refill(s), other Nystatin 379001 1,000,000 No UNT Oral Tablet unit = 2 Longer 018 Medical tab, PO, Active Group BID, X 30 day, # 120 tab, 0 Refill(s), Pharmacy: [id number] Allergies, Adverse Reactions, Alerts Substance Category Reaction Severity Reaction Status Date Comments S ource type Reported No Known Assertion Drug MH Medication allergy Medic al Allergies Group Immunizations No Data Provided for This Section Results No Data Provided for This Section Pathology Reports No Data Provided for This Section Diagnostic Reports No Data Provided for This Section Consultation Notes No Data Provided for This Section Discharge Summaries No Data Provided for This Section History and Physicals No Data Provided for This Section Vital Signs Vital Sign Value Date Comments Source Systolic (mm Hg) 112 12/02/2019 Medical Group Diastolic (mm Hg) 75 12/02/2019 Medical Group Heart Rate 79 12/02/2019 Medical Grou p Temperature Oral (F) 98.8 F 12/02/2019 Medi cece Group Height 177.8 cm 12/02/2019 Medical Grou p Weight 63.182 12/02/2019 Medical Grou p BMI Calculated 19.99 12/02/2019 Medical Gr oup Temperature Oral (F) 97.8 F 03/13/2018 Medi cece Group Heart Rate 69 03/13/2018 Medical Grou p Systolic (mm Hg) 112 03/13/2018 Medical Group Diastolic (mm Hg) 71 03/13/2018 Medical Group BMI Calculated 20.42 03/13/2018 Medical Gr oup Height 175.26 cm 03/13/2018 Medical Grou p Weight 62.727 03/13/2018 Medical Grou p Encounters Location Location Encounter Encounter Reason Attending ADM [place] Stat us Source Details Type Number For Provider Date Date Visit Outpatient [id number] ENMANUEL 02/08 [facility] Phone [id number] 01/06 01/08 Primary [facility] /2017 [facility] [place] Outpatient [id number] ENMANUEL 03/13 [facility]2017 [facility] Outpatient [id number] Enmanuel 03/13 03/14 [facility]2017 [facility] Phone [id number] 03/14 03/16 Primary Message /2017 [facility] [place] Outpatient [id number] Enmanuel 09/29 [facility] Ambulatory [id number] Enmanuel 09/30 09/30 Primary Pre-Reg [facility] /[facility] Outpatient [id number] Paresh 12/17 [facility] [id number] Paresh 01/19 01/19 [facility] Pre[facility]Reg [facility] /2018 [facility] Between [id number] 08/17 08/18 Primary Visit /2019 [facility] [place] Outpatient [id number] Enmanuel 12/01 [facility] [facility] Outpatient [id number] Enmanuel 12/01 12/02 Primary [facility] /2019 [facility] [place] Outpatient [id number] Enmanuel 12/14 [facility] [facility] Between [id number] 12/14 12/15 Primary Visit /2019 [facility] [place] Outpatient [id number] Kaity 12/17 [facility]2019 [facility] Procedures No Data Provided for This Section Assessment and Plan No Data Provided for This Section Plan of Care No Data Provided for This Section Social History Social History Date Source Social History TypeResponse 12/02/2019 Medical G roup Alcohol 1 Exercise Exercise type: Walking.2 Substance Abuse 3 Smoking Status Never smoker; Type: Pipe; Exposure to To bacco Smoke None; Cigarette Smoking Last 365 Days No; Reg Smoking Cessation Counseling No entered on: 12/02/19 [id number] Social History TypeResponse 03/13/2018 [facility] Smoking Status Never smoker; Type: Pipe; Exposure to To bacco Smoke None; Cigarette Smoking Last 365 Days No; Reg Smoking Cessation Counseling No entered on: 03/13/18 Family History No Data Provided for This Section Advance Directives No Data Provided for This Section Functional Status No Data Provided for This Section
--- OUTSIDE RECORDS SUMMARY | 2019-12-18 20:42 | XMS REPORT | Summary of Care ---
:1985 Author Organization [facility] Primary [facility] [place] Address [address] [place] [address], [place] [address]- Encounter HQ Quiquer_bianca(FIN) [id number] Date(s): 12/02/19 - 12/02/19 [facility] Primary Care [address] [place] [address] [place] [address]- [phone] Discharge Disposition: Home or Self Care Attending Physician: Mj Gonzales MD Vital Signs Most recent to oldest [Reference Range]: 1 Height 177.8 cm (12/02/19 10:55 AM) Temperature Oral [96.4-99.1 DegF] 98.8 DegF (12/02/19 10:55 AM) Blood Pressure [90-140/60-90 mmHg] 112/75 mmHg (12/02/19 10:55 AM) Peripheral Pulse Rate [60-100 bpm] 79 bpm (12/02/19 10:55 AM) Weight 63.182 kg (12/02/19 10:55 AM) Body Mass Index 19.99 m2 (12/02/19 10:55 AM) Problem List Condition Effective Dates Status Health Status Informant Bicuspid aortic valve(Confirmed) Active Chronic fatigue syndrome(Confirmed) Active Depression(Confirmed) Active Fatigue1 02/11/12 Active H/O scarlet fever(Confirmed) Active Headache2 10/06/13 Active Hypogonadism3 02/11/12 Active RAD (reactive airway disease) with Active wheezing(Confirmed) Sjogrens syndrome(Confirmed) Active 1Data migrated from [employer] on 10/30/14.2Data migrated from [employer] on 10/30/14.3Data migrated from [employer] on 10/30/14. Allergies, Adverse Reactions, Alerts No Known Medication Allergies Medications cephalexin 500 mg oral capsule 500 mg = 1 cap, PO, TID, X 10 day, # 30 cap, 0 Refill(s), Pharmacy: [facility] #[id number], 177.8, cm, 12/02/19 10:55:00 CDT, Height, 63.182, kg, 12/02/19 10:55:00 CDT, Weight Start Date: 12/02/19 Stop Date: 12/12/19 Status: Orderedhydrocortisone/neomycin/polymyxin B otic solution 2 drp, BOTH EARS, QID, X 10 day, # 10 ml, 0 Refill(s), Pharmacy: [facility] #[id number], 177.8,cm, 12/02/19 10:55:00 CDT, Height, 63.182, kg, 12/02/19 10:55:00 CDT, Weight Start Date: 12/02/19 Stop Date: 12/12/19 Status: Ordered Results No data available for this section Immunizations No data available for this section Procedures No data available for this section Social History Social History Type Response Alcohol 1 Exercise Exercise type: Walking.2 Substance Abuse 3 Smoking Status Never smoker; Type: Pipe; Ex posure to Tobacco Smoke None; Cigarette Smoking Last 365 Days No; Reg Smoking Cessation Counseling No entered on: 12/02/19 [id number] Assessment and Plan No data available for this section
--- NOTE | 2019-12-18 23:36 | ER ---
Nurse's Notes [facility] Name: Emiliano Boothe Age: 34 yrs Sex: Male : 1985 Arrival Date: 12/18/2019 Time: 20:44 Bed 20 Private MD: Diagnosis: Acute bronchitis Presentation: 12/17 20:55 Chief complaint: Patient states: Cough and SOB for 8 days. Mid chest pain with cough ll1 today. No fever. No N/V/D. Coronavirus screen: Patient reports a cough. Patient reports shortness of breath or difficulty breathing. Patient denies measured and/or subjective temperature greater than 100.4F prior to today's visit. Patient denies travel on a cruise ship or to a country the [facility] currently lists as an affected area. Patient reports contact with known and/or suspected case of COVID-19. Patient was placed back in the lobby due to no available rooms at this time. Patient was instructed to always wear their mask and to isolate themselves as much as possible from others in the lobby. Ebola Screen: Patient denies travel to an Ebola-affected area in the 21 days before illness onset. Initial Sepsis Screen: Does the patient meet any 2 criteria? No. Patient's initial sepsis screen is negative. Risk Assessment: Do you want to hurt yourself or someone else? Patient reports no desire to harm self or others. Onset of symptoms was December 10, 2019. 20:55 Method Of Arrival: Ambulatory ll1 20:55 Acuity: JEFFRY 3 ll1 12/18 00:18 Initial Sepsis Screen: Does the patient have a suspected source of infection? No. mt2 Patient's initial sepsis screen is negative. Triage Assessment: 00:18 General: Behavior is cooperative. mt2 Historical: - Allergies: 12/17 20:55 No Known Allergies; ll1 - PMHx: 20:55 GERD; bicuspid aorta; ll1 - PSHx: 20:55 None; ll1 - Immunization history:: Flu vaccine is not up to date. - Social history:: Smoking status: Patient denies any tobacco usage or history of. Patient/guardian denies using alcohol, street drugs, tobacco products. Screenin:38 Abuse screen: Denies threats or abuse. Nutritional screening: No deficits noted. mt2 Tuberculosis screening: No symptoms or risk factors identified. Fall Risk None identified. Assessment: 22:10 General: Appears in no apparent distress. Pain: Denies pain. Neuro: No deficits noted. mt2 Cardiovascular: No deficits noted. Respiratory: Reports cough that is non-productive. GI: No deficits noted. : No deficits noted. EENT: No deficits noted. Derm: No deficits noted. Musculoskeletal: No deficits noted. 12/18 00:15 Reassessment: No changes from previously documented assessment. Patient and/or family mt2 updated on plan of care and expected duration. Pain level reassessed. Vital Signs: 12/17 20:55 BP 127 / 81; Pulse 85; Resp 17; Temp 98.2; Pulse Ox 100% ; Pain 5/10; ll1 22:10 BP 117 / 5; Pulse 93; Resp 16; Pulse Ox 100% ; Pain 0/10; mt2 22:10 BP 117 / 56; sg 23:00 BP 119 / 73; Pulse 72; Resp 16; Temp 98.0; Pulse Ox 97% ; Pain 0/10; mt2 23:00 BP 114 / 69; Pulse 71; Resp 16; Pulse Ox 97% ; Pain 0/10; mt2 Burton Coma Score: 22:10 Eye Response: spontaneous(4). Verbal Response: oriented(5). Motor Response: obeys mt2 commands(6). Total: 15. ED Course: 20:44 Patient arrived in ED. ag3 20:57 Triage completed. ll1 20:57 Arm band placed on Patient notified of wait time. ll1 22:04 Juliane Turner, MARTHA is Primary Nurse. mt2 22:17 Mart Wing PA is PHCP. jr8 22:17 Fili Sexton MD is Attending Physician. jr8 22:58 XRAY Chest (1 view) In Process Unspecified. EDMS 23:35 Klaus Marcus MD is Referral Physician. jr8 12/18 00:15 Patient has correct armband on for positive identification. Placed in gown. Bed in low mt2 position. Call light in reach. Side rails up X 1. Side rails up X2. 00:15 No provider procedures requiring assistance completed. Patient did not have IV access mt2 during this emergency room visit. Administered Medications: No medications were administered Outcome: 12/17 23:00 Discharged to home ambulatory. mt2 Condition: good Discharge instructions given to patient, Instructed on discharge instructions, medication usage, Demonstrated understanding of instructions, follow-up care, medications, Prescriptions given X 2. 23:35 Discharge ordered by MD. chinchilla 12/18 00:19 Patient left the ED. mt2 Addendum: 12/23/2019 14:09 Addendum: COVID-19 Result: Negative result given to RN to notify pt. Attempted to d m5 contact pt regarding negative COVID-19 swab results. Signatures: Dispatcher [employer] EDIA Lucia Hernandez, RN RN dm5 Theo Montelongo RN RN Mart Alejandre PA PA jr8 Jacinda Melton Lynsay RN RN ll1 Juliane Turner RN RN mt2
--- NOTE | 2019-12-18 23:36 | EDPHYS ---
Physician Documentation [facility] Name: Emiliano Boothe Age: 34 yrs Sex: Male : 1985 Arrival Date: 12/18/2019 Time: 20:44 Bed 20 Private MD: ED Physician Fili Sexton HPI: 12/17 23:31 This 34 yrs old Male presents to ER via Ambulatory with complaints of Cough. jr8 23:31 The patient or guardian reports cough, that is intermittent, described as moderate, jr8 with no sputum. Onset: The symptoms/episode began/occurred gradually, 2 week(s) ago, and became worse. Severity of symptoms: At their worst the symptoms were moderate, in the emergency department the symptoms are unchanged. Modifying factors: The symptoms are alleviated by nothing, the symptoms are aggravated by nothing. Associated signs and symptoms: The patient has no apparent associated signs or symptoms. The patient has not experienced similar symptoms in the past. The patient has been recently seen by a physician:. Patient stated that he was started on budesonide inhaler but still is not feeling better . Historical: - Allergies: 20:55 No Known Allergies; ll1 - PMHx: 20:55 GERD; bicuspid aorta; ll1 - PSHx: 20:55 None; ll1 - Immunization history:: Flu vaccine is not up to date. - Social history:: Smoking status: Patient denies any tobacco usage or history of. Patient/guardian denies using alcohol, street drugs, tobacco products. ROS: 23:31 Eyes: Negative for injury, pain, redness, and discharge, ENT: Negative for injury, jr8 pain, and discharge, Neck: Negative for injury, pain, and swelling, Cardiovascular: Negative for chest pain, palpitations, and edema, Abdomen/GI: Negative for abdominal pain, nausea, vomiting, diarrhea, and constipation, Back: Negative for injury and pain, MS/Extremity: Negative for injury and deformity, Skin: Negative for injury, rash, and discoloration, Neuro: Negative for headache, weakness, numbness, tingling, and seizure. 23:31 Respiratory: Positive for cough, Negative for dyspnea on exertion, shortness of breath, sputum production, wheezing. Exam: 23:31 Eyes: Pupils equal round and reactive to light, extra-ocular motions intact. Lids and jr8 lashes normal. Conjunctiva and sclera are non-icteric and not injected. Cornea within normal limits. Periorbital areas with no swelling, redness, or edema. ENT: Nares patent. No nasal discharge, no septal abnormalities noted. Tympanic membranes are normal and external auditory canals are clear. Oropharynx with no redness, swelling, or masses, exudates, or evidence of obstruction, uvula midline. Mucous membranes moist. Neck: Trachea midline, no thyromegaly or masses palpated, and no cervical lymphadenopathy. Supple, full range of motion without nuchal rigidity, or vertebral point tenderness. No Meningismus. Cardiovascular: Regular rate and rhythm with a normal S1 and S2. No gallops, murmurs, or rubs. Normal PMI, no JVD. No pulse deficits. Respiratory: Lungs have equal breath sounds bilaterally, clear to auscultation and percussion. No rales, rhonchi or wheezes noted. No increased work of breathing, no retractions or nasal flaring. Abdomen/GI: Soft, non-tender, with normal bowel sounds. No distension or tympany. No guarding or rebound. No evidence of tenderness throughout. Back: No spinal tenderness. No costovertebral tenderness. Full range of motion. Skin: Warm, dry with normal turgor. Normal color with no rashes, no lesions, and no evidence of cellulitis. MS/ Extremity: Pulses equal, no cyanosis. Neurovascular intact. Full, normal range of motion. Neuro: Awake and alert, GCS 15, oriented to person, place, time, and situation. Cranial nerves II-XII grossly intact. Motor strength 5/5 in all extremities. Sensory grossly intact. Cerebellar exam normal. Normal gait. Vital Signs: 20:55 BP 127 / 81; Pulse 85; Resp 17; Temp 98.2; Pulse Ox 100% ; Pain 5/10; ll1 22:10 BP 117 / 5; Pulse 93; Resp 16; Pulse Ox 100% ; Pain 0/10; mt2 22:10 BP 117 / 56; sg 23:00 BP 119 / 73; Pulse 72; Resp 16; Temp 98.0; Pulse Ox 97% ; Pain 0/10; mt2 23:00 BP 114 / 69; Pulse 71; Resp 16; Pulse Ox 97% ; Pain 0/10; mt2 Robin Coma Score: 22:10 Eye Response: spontaneous(4). Verbal Response: oriented(5). Motor Response: obeys mt2 commands(6). Total: 15. MDM: 22:17 Patient medically screened. jr8 23:31 Data reviewed: vital signs, nurses notes, radiologic studies, plain films, and as a jr8 result, I will discharge patient. Data interpreted: Pulse oximetry: on room air is 100 %. Interpretation: normal. Counseling: I had a detailed discussion with the patient and/or guardian regarding: the historical points, exam findings, and any diagnostic results supporting the discharge/admit diagnosis, radiology results, the need for outpatient follow up, a family practitioner, to return to the emergency department if symptoms worsen or persist or if there are any questions or concerns that arise at home. ED course: No acute findings on images. Will put on systemic steroid and zithromax incase atypical infection is present since patient has had symptoms for greater then 2 weeks now. 12/17 23:38 Order name: COVID-19 jr8 12/17 22:44 Order name: XRAY Chest (1 view) jr8 Administered Medications: No medications were administered Disposition: 12/18 00:40 Co-signature as Attending Physician, Fili Sexton MD. walt Disposition: 12/18/19 23:35 Discharged to Home. Impression: Acute bronchitis. - Condition is Stable. - Discharge Instructions: Acute Bronchitis, Adult. - Prescriptions for Prednisone 20 mg Oral Tablet - take 1 tablet by ORAL route once daily for 5 days; 5 tablet. Zithromax Z- Lion 250 mg Oral Tablet - take 1 tablet by ORAL route as directed for 5 days Day 1 - take two (2) tablets one time. Day 2, 3, 4 , 5 take one (1) tablet once daily.; 6 tablet. - Medication Reconciliation Form, Thank You Letter, Antibiotic Education, Prescription Opioid Use form. - Follow up: Klaus Marcus MD; When: 1 week; Reason: Recheck today's complaints, Continuance of care, Re-evaluation by your physician. - Problem is new. - Symptoms are unchanged. Signatures: Dispatcher [employer] EDMS Fili Sexton MD MD pkl Mart Wing PA PA jr8 Darius Soriano RN RN ll1 Juliane Turner RN RN mt2 Corrections: (The following items were deleted from the chart) 00:19 12/17 23:35 12/18/2019 23:35 Discharged to Home. Impression: Acute bronchitis. mt2 Condition is Stable. Forms are Medication Reconciliation Form, Thank You Letter, Antibiotic Education, Prescription Opioid Use. Follow up: Klaus Marcus; When: 1 week; Reason: Recheck today's complaints, Continuance of care, Re-evaluation by your physician. Problem is new. Symptoms are unchanged. jr8
--- NOTE | 2019-12-19 11:19 | RAD REPORT ---
EXAM DESCRIPTION: Luis Carlos Single View12/18/2019 10:58 pm CLINICAL HISTORY: cough COMPARISON: 2019 FINDINGS: The lungs appear clear of acute infiltrate. The heart is normal size IMPRESSION: No acute abnormalities displayed
== END 2019-12-19 00:19 | disposition home or self-care (01) ==
LOC: ER 20:39
DX: J20.9 Acute bronchitis, unspecified (principal); Z20.828 Contact with and (suspected) exposure to other viral communicable diseases
CPT/HCPCS: 71045; 99283; U0001

== ENCOUNTER 2020-01-17 16:28 | Emergency (ER) | payer SELFPAY ==
--- OUTSIDE RECORDS SUMMARY | 2020-01-17 16:30 | XMS REPORT | Clinical Summary ---
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
--- OUTSIDE RECORDS SUMMARY | 2020-01-17 16:31 | XMS REPORT | Continuity of Care Document ---
:1985 Author Organization [facility] Care Team Providers Name Role Phone Group [facility] Unavailable Un available Problems Problem Status Onset Classification Date Comments Sourc e Date Reported Headache Active 10/07/19 Problem 12/20/2019 Data migrated Me dical (finding) 14 from [facility] Group,Misc Centricity on her Ne uro 10/30/14. Fatigue Active 02/11/20 Problem 12/20/2019 Data migrated Me dical (finding) 12 from Group,Misc Centricity on her Ne uro 10/30/14. Hypogonadism Active 02/11/20 Problem 12/20/2019 Data migrated Medical (disorder) 12 from Group,Mis c Centricity on her Ne uro 10/30/14. 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 Medica l syndrome Group,Misc (disorder) her Neuro Allergic Active Problem 12/20/2019 Medica l bronchitis Group (disorder) Medications Medication Details Route Status Patient Ordering Order Source Instructions Provider Date Hydrocortisone 10 2 drp, BOTH Active MG/ML / Neomycin EARS, QID, X 020 Me dical 3.5 MG/ML / 10 day, # 10 Group Polymyxin B 01287 ml, 0 UNT/ML Otic Refill(s), Solution Pharmacy: [facility] #[id number], 177.8, cm, 12/02/19 10:55:00 CDT, Height, 63.182, kg, 12/02/19 10:55:00 CDT, Weight cephalexin 500 mg 500 mg = 1 Active oral capsule cap, PO, 020 Medical TID, X 10 Group day, # 30 cap, 0 Refill(s), Pharmacy: [facility] #[id number], 177.8, cm, 12/02/19 10:55:00 CDT, Height, 63.182, kg, 12/02/19 10:55:00 CDT, Weight Azithromycin 5 See Active Day Dose Pack 250 Instructions 020 M edical mg oral tablet , Take 2 Group tablets by mouth the first day then 1 tablet by mouth days 2-5., X 5 day, # 6 tab, 0 Refill(s), Pharmacy: [facility] #[id number] albuterol 90 2 puff, Active mcg/inh INHALATION, 020 Medical inhalation Q6H, PRN for Group aerosol wheezing, # 9 gm, 0 Refill(s), Pharmacy: [facility] #[id number] benzonatate 100 100 mg = 1 Active mg oral capsule cap, PO, 020 Medical TID, do not Group crush or chew, X 10 day, # 30 cap, 0 Refill(s), Pharmacy: [facility] #[id number] cetirizine 10 mg 10 mg = 1 Active oral tablet tab, PO, 018 Medical Daily, # 30 Group tab, 3 Refill(s), other omeprazole 20 mg 20 mg = 1 Active oral enteric tab, PO, 018 Medical coated tablet BID, # 30 Group tab, 0 Refill(s), other Nystatin [id number] 1,000,000 No UNT Oral Tablet unit = 2 Longer 018 Medical tab, PO, Active Group BID, X 30 day, # 120 tab, 0 Refill(s), Pharmacy: [id number] Allergies, Adverse Reactions, Alerts Substance Category Reaction [...] Location Location Encounter Encounter Reason Attending ADM OR Stat us Source Details Type Number For Provider Date Date Visit Outpatient [id number] ENMANUEL [facility]08 [facility] Phone [id number] 01/06 01/08 Primary Message [facility]2017 [facility] Outpatient [id number] ENMANUEL 03/13 [facility] Outpatient [id number] Enmanuel 03/13 03/14 Primary [facility] /2017 [facility] Phone [id number] 03/14 03/16 Primary Message /2017 [facility] Outpatient [id number] Enmanuel 09/29 [facility] Ambulatory [id number] Enmanuel 09/30 09/30 Primary Pre-Reg [facility] /2018 [facility] Outpatient [id number] Paresh 12/17 [facility] [id number] Paresh 01/19 01/19 [facility] N euro y [facility] Between [id number] 08/17 08/18 Primary Visit /2019 [facility] Outpatient [id number] Enmanuel 12/01 [facility] Outpatient [id number] Enmanuel 12/01 12/02 Primary [facility]2019 [facility] Out[facility] [id number] Enmanuel 12/14 [facility]2020 [facility] Between [id number] 12/14 12/15 Primary Visit /2019 [facility] Outpatient [id number] Kaity 12/17 [facility] [place] [facility] Ambulatory [id number] Kaity 12/17 12/17 Primary Pre-Reg [place] /2019 [facility] Outpatient [id number] Enmanuel 01/13 [facility] Procedures No Data Provided for This Section [...] Smoking Cessation Counseling No entered on: 12/02/19 [id number] Social History TypeResponse 03/13/2018 [facility] [...]
--- OUTSIDE RECORDS SUMMARY | 2020-01-17 16:31 | XMS REPORT | Summary of Care ---
:1985 Author Organization [facility] Primary [facility] [place] Address [address] [place] [address], [place] [address]- Encounter HQ Encntr_alias(FIN) [id number] Date(s): 12/18/19 - 12/18/19 [facility] Primary [facility] [place] [address] [place] [address] [place] [address]- [phone] Attending Physician: Kaity Laguerre MD Vital Signs No data available for this [...] Smoking Cessation Counseling No entered on: 12/02/19 [id number] Assessment and Plan No data available for this section
[2020-01-17 17:52] LABS: Basophils % 0.8 % (0-1.3); Hematocrit 45.3 % (39.6-49.0); Lymphocytes % 23.6 % (15.3-44.8); MPV 8.2 fL (7.6-11.3); RBC Red Blood Cell Count 5.31 M/uL (4.33-5.43)
[2020-01-17] MEDS ORDERED: NA CHLORIDE 0.9% 1,000 ML ONE (17:57)
[2020-01-17 18:11] LABS: Ferritin 75.4 ng/mL (26-388); Potassium 4.1 mmol/L (3.5-5.1)
[2020-01-17 18:16] LABS: Thyroid Stimulating Hormone 4.06 uIU/mL (0.360-3.740)
[2020-01-17 18:18] LABS: Urine Blood NEGATIVE (NEG); Urine Glucose NEGATIVE (NEG); Urine Protein NEGATIVE (NEG); Urine pH 5.5 (5.0-7.0)
[2020-01-17 18:30] LABS: Blood Morphology Comment NOT SEEN (NOT SEEN); Platelet Estimate ADEQ
--- NOTE | 2020-01-17 18:36 | RAD REPORT ---
EXAM DESCRIPTION: CT - Chest For Pe Angio - 01/17/2020 6:28 pm CLINICAL HISTORY: cough COMPARISON: None. TECHNIQUE: Dynamically enhanced axial 3 mm thick images of the chest were obtained during administra tion of <100> mL Isovue 370 IV contrast. Coronal and oblique reconstruction images were generated and reviewed. Exam utilizes a protocol for optimal evaluation of pulmonary arterial tree. Maximum intensity projections 3D imaging was utilized All CT scans are performed using dose optimization technique as appropriate and may include automated exposure control or mA/KV adjustment according to patient size. FINDINGS: A pulmonary embolus is not seen. The root of the thoracic aorta has an AP diameter 3 7 centimeters. A pleural effusion is not seen. A pericardial effusion is not seen. A lung consolidation is not present. IMPRESSION: Negative for a pulmonary embolism.
--- NOTE | 2020-01-17 19:11 | EDPHYS ---
Physician Documentation [facility] Name: Emiliano Boothe Age: 34 yrs Sex: Male : 1985 Arrival Date: 01/17/2020 Time: 16:31 Bed 18 Private MD: ED Physician Suresh Ray HPI: 01/16 17:24 This 34 yrs old Male presents to ER via Ambulatory with complaints of snw Shortness Of Breath, Cough. 17:24 The patient has shortness of breath at rest, with light activity. Onset: The snw symptoms/episode began/occurred 2.5 month(s) ago, and became persistent. Duration: The symptoms are continuous, and are unchanged since they started. Associated signs and symptoms: Pertinent positives: non-productive cough, productive cough, fever. Severity of symptoms: At their worst the symptoms were moderate. The patient has experienced similar episodes in the past, multiple times. The patient has been recently seen by a physician: with similar presenting complaints, multiple rounds of steroids, antibiotics, inhalers with no real improvement. Historical: - Allergies: 16:37 No Known Allergies; sv - PMHx: 16:37 bicuspid aorta; GERD; sv - PSHx: 16:37 None; sv - Immunization history:: Adult Immunizations up to date. ROS: 17:23 Eyes: Negative for injury, pain, redness, and discharge, ENT: Negative for injury, snw pain, and discharge, Neck: Negative for injury, pain, and swelling, Cardiovascular: Negative for chest pain, palpitations, and edema. 17:23 Abdomen/GI: Negative for abdominal pain, nausea, vomiting, diarrhea, and constipation, Back: Negative for injury and pain, : Negative for injury, bleeding, discharge, and swelling, MS/Extremity: Negative for injury and deformity, Skin: Negative for injury, rash, and discoloration, Neuro: Negative for headache, weakness, numbness, tingling, and seizure, Psych: Negative for depression, anxiety, suicide ideation, homicidal ideation, and hallucinations. 17:23 Constitutional: Positive for body aches, fever, malaise. 17:23 Respiratory: Positive for cough, orthopnea, shortness of breath. 17:23 Respiratory: Positive for pleurisy, of the chest. Exam: 17:22 Head/Face: Normocephalic, atraumatic. Eyes: Pupils equal round and reactive to light, snw extra-ocular motions intact. Lids and lashes normal. Conjunctiva and sclera are non-icteric and not injected. Cornea within normal limits. Periorbital areas with no swelling, redness, or edema. ENT: Nares patent. No nasal discharge, no septal abnormalities noted. Tympanic membranes are normal and external auditory canals are clear. Oropharynx with no redness, swelling, or masses, exudates, or evidence of obstruction, uvula midline. Mucous membranes moist. Neck: Trachea midline, no thyromegaly or masses palpated, and no cervical lymphadenopathy. Supple, full range of motion without nuchal rigidity, or vertebral point tenderness. No Meningismus. Chest/axilla: Normal chest wall appearance and motion. Nontender with no deformity. No lesions are appreciated. 17:22 Abdomen/GI: Soft, non-tender, with normal bowel sounds. No distension or tympany. No guarding or rebound. No evidence of tenderness throughout. Back: No spinal tenderness. No costovertebral tenderness. Full range of motion. Skin: Warm, dry with normal turgor. Normal color with no rashes, no lesions, and no evidence of cellulitis. MS/ Extremity: Pulses equal, no cyanosis. Neurovascular intact. Full, normal range of motion. Neuro: Awake and alert, GCS 15, oriented to person, place, time, and situation. Cranial nerves II-XII grossly intact. Motor strength 5/5 in all extremities. Sensory grossly intact. Cerebellar exam normal. Normal gait. Psych: Awake, alert, with orientation to person, place and time. Behavior, mood, and affect are within normal limits. 17:22 Constitutional: The patient appears alert, awake, frail, pale. 17:22 Cardiovascular: Rate: tachycardic, Rhythm: regular, Pulses: no pulse deficits are appreciated. 17:22 Respiratory: the patient does not display signs of respiratory distress, Respirations: shallow respirations, tachypnea, Breath sounds: decreased breath sounds, that are mild, are located in both bases. Vital Signs: 16:38 BP 117 / 90; Pulse 94; Resp 16; Temp 98.3; Pulse Ox 98% ; Weight 62.6 kg; Height 5 ft. sv 9 in. (175.26 cm); 18:30 BP 103 / 69; Pulse 88; Resp 18; Pulse Ox 99% on R/A; em 19:30 BP 109 / 69; Pulse 81; Resp 19; Temp 98.0(O); Pulse Ox 98% ; Pain 0/10; mt2 16:38 Body Mass Index 20.38 (62.60 kg, 175.26 cm) sv MDM: 16:58 Patient medically screened. snw 19:48 Data reviewed: vital signs, nurses notes. Data interpreted: Pulse oximetry: on room air snw is 99 %. Interpretation: normal. Counseling: I had a detailed discussion with the patient and/or guardian regarding: the historical points, exam findings, and any diagnostic results supporting the discharge/admit diagnosis, lab results, radiology results, the need for outpatient follow up, to return to the emergency department if symptoms worsen or persist or if there are any questions or concerns that arise at home. Special discussion: Based on the history and exam findings, there is no indication for further emergent testing or inpatient evaluation. I discussed with the patient/guardian the need to see the ENT specialist for further evaluation of the symptoms. I discussed with the patient/guardian the need to see the primary care provider for further evaluation of the symptoms. I discussed with the patient/guardian the need to see the show host for further evaluation of the symptoms. 01/16 16:50 Order name: COVID-19 snw 01/16 16:50 Order name: CBC with Diff; Complete Time: 18:32 snw 01/16 16:50 Order name: Chem 7; Complete Time: 18:14 snw 01/16 16:50 Order name: Ferritin; Complete Time: 18:14 snw 01/16 16:53 Order name: TSH; Complete Time: 18:32 snw 01/16 16:56 Order name: Urine For Protein, Random; Complete Time: 18:32 snw 01/16 16:50 Order name: CT Chest For PE Angio; Complete Time: 18:59 snw 01/16 16:56 Order name: Misc. Lab Test snw 01/16 17:53 Order name: Manual Differential; Complete Time: 18:32 EDMS 01/16 18:07 Order name: Urine Dipstick--Ancillary (enter results); Complete Time: 18:32 eb 01/16 18:17 Order name: T4 Free; Complete Time: 18:32 EDMS 01/16 18:33 Order name: Add On-Lab snw 01/16 18:39 Order name: [place] Screen; Complete Time: 18:59 EDMS Administered Medications: 17:56 Drug: NS 0.9% 1000 ml Route: IV; Rate: 125 ml/hr; Site: right antecubital; em 19:47 Follow up: Response: No adverse reaction; IV Status: Completed infusion mt2 Disposition: 18:23 Co-signature as Attending Physician, Suresh Ray MD. [email or web address] M Disposition: 01/17/20 19:10 Discharged to Home. Impression: Cough variant asthma, Eosinophilic esophagitis. - Condition is Stable. - Discharge Instructions: Asthma, Adult, Esophagitis, Peak Flow Meter. - Prescriptions for Effexor XR 75 mg Oral capsule,extended release 24hr - take 1 capsule by ORAL route once daily with food; 30 capsule. Pepcid 20 mg Oral Tablet - take 1 tablet by ORAL route every 12 hours for 10 days; 20 tablet. - Medication Reconciliation Form, Thank You Letter, Antibiotic Education, Prescription Opioid Use form. - Follow up: Emergency Department; When: As needed; Reason: Worsening of condition. Follow up: Private Physician; When: 2 - 3 days; Reason: Recheck today's complaints, Continuance of care, Re-evaluation by your physician. - Notes: Please continue current medications Signatures: Dispatcher [employer] Zoe Schmidt, RN MARTHA Saskia Gonzalez, AIRPLANE RENTAL CLERK-C AIRPLANE RENTAL CLERK-Csnw Lavell Ruiz RN RN Suresh Ray MD MD [facility] Juliane Turner RN RN mt2 Corrections: (The following items were deleted from the chart) 20:03 19:10 01/17/2020 19:10 Discharged to Home. Impression: Cough variant asthma; mt2 Eosinophilic esophagitis. Condition is Stable. Forms are Medication Reconciliation Form, Thank You Letter, Antibiotic Education, Prescription Opioid Use. Follow up: Emergency Department; When: As needed; Reason: Worsening of condition. Follow up: Private Physician; When: 2 - 3 days; Reason: Recheck today's complaints, Continuance of care, Re-evaluation by your physician. snw
--- NOTE | 2020-01-17 19:11 | ER ---
Nurse's Notes [facility] Name: Emiliano Boothe Age: 34 yrs Sex: Male : 1985 Arrival Date: 01/17/2020 Time: 16:31 Bed 18 Private MD: Diagnosis: Cough variant asthma;Eosinophilic esophagitis Presentation: 01/16 16:35 Chief complaint: Patient states: fever Tmax 99.7, cough, congestion, SOB, dry eyes, sv sore throat that has been ongoing for 2 months. Coronavirus screen: Client denies travel out of the [place] in the last 14 days. congestion, fever, sore throat, Client presents with at least one sign or symptom that may indicate coronavirus-19. Standard/surgical mask placed on the client. Provider contacted for isolation considerations. At this time, the client does not indicate any symptoms associated with coronavirus-19. Ebola Screen: No symptoms or risks identified at this time. Risk Assessment: Do you want to hurt yourself or someone else? Patient reports no desire to harm self or others. Onset of symptoms was 2019. 16:35 Method Of Arrival: Ambulatory sv 16:35 Acuity: JEFFRY 3 sv 16:38 Initial Sepsis Screen: Does the patient meet any 2 criteria? HR > 90 bpm. No. Patient's sv initial sepsis screen is negative. Does the patient have a suspected source of infection? No. Patient's initial sepsis screen is negative. Historical: - Allergies: 16:37 No Known Allergies; sv - PMHx: 16:37 bicuspid aorta; GERD; sv - PSHx: 16:37 None; sv - Immunization history:: Adult Immunizations up to date. Screenin:55 Abuse screen: Denies threats or abuse. Nutritional screening: No deficits noted. em Tuberculosis screening: No symptoms or risk factors identified. Fall Risk None identified. Assessment: 17:00 General: Appears in no apparent distress. comfortable, Behavior is calm, cooperative, em appropriate for age, Denies fever. Pain: Denies pain. Neuro: Level of Consciousness is awake, alert, obeys commands, Oriented to person, place, time, situation, Appropriate for age. Cardiovascular: Reports chest pain, shortness of breath, Rhythm is regular. Respiratory: Reports shortness of breath at rest cough that is hacking, Airway is patent Respiratory effort is even, unlabored, Respiratory pattern is regular, symmetrical, Breath sounds are clear bilaterally. GI: Patient currently denies nausea, vomiting. Derm: Skin is intact, is healthy with good turgor, Skin is pink, warm \T\ dry. Musculoskeletal: Capillary refill < 3 seconds, Range of motion: intact in all extremities. 18:32 Reassessment: Patient appears in no apparent distress at this time. Patient and/or em family updated on plan of care and expected duration. Pain level reassessed. Patient is alert, oriented x 3, equal unlabored respirations, skin warm/dry/pink. 19:15 Reassessment: Patient and/or family updated on plan of care and expected duration. Pain mt2 level reassessed. Patient is alert, oriented x 3, equal unlabored respirations, skin warm/dry/pink. Patient denies pain at this time. Patient states feeling better. General: Appears in no apparent distress. comfortable, Behavior is calm, cooperative. Pain: Denies pain. Vital Signs: 16:38 BP 117 / 90; Pulse 94; Resp 16; Temp 98.3; Pulse Ox 98% ; Weight 62.6 kg; Height 5 ft. sv 9 in. (175.26 cm); 18:30 BP 103 / 69; Pulse 88; Resp 18; Pulse Ox 99% on R/A; em 19:30 BP 109 / 69; Pulse 81; Resp 19; Temp 98.0(O); Pulse Ox 98% ; Pain 0/10; mt2 16:38 Body Mass Index 20.38 (62.60 kg, 175.26 cm) sv ED Course: 16:31 Patient arrived in ED. mr 16:35 Arm band placed on. sv 16:37 Triage completed. sv 16:43 Saskia Gonzalez FNP-C is PHCP. snw 16:43 Suresh Ray MD is Attending Physician. snw 16:45 Lavell Ruiz, RN is Primary Nurse. em 16:55 Patient has correct armband on for positive identification. Bed in low position. Call em light in reach. 18:00 Radiology exam delayed due to lab results not completed at this time. (BUN/Creatinine) eh IV insertion attempt and/or patient not having appropriate IV at this time. 18:28 CT Chest For PE Angio In Process Unspecified. EDMS 19:02 Primary Nurse role handed off by Lavell Ruiz, RN mt2 19:02 Juliane Turner, RN is Primary Nurse. mt2 20:02 No provider procedures requiring assistance completed. IV discontinued, intact, mt2 bleeding controlled, No redness/swelling at site. Pressure dressing applied. Administered Medications: 17:56 Drug: NS 0.9% 1000 ml Route: IV; Rate: 125 ml/hr; Site: right antecubital; em 19:47 Follow up: Response: No adverse reaction; IV Status: Completed infusion mt2 Outcome: 19:10 Discharge ordered by . snw 20:02 Discharged to home ambulatory. mt2 20:02 Condition: good 20:02 Discharge instructions given to patient, Instructed on discharge instructions, follow up and referral plans. medication usage, Demonstrated understanding of instructions, follow-up care, medications, Prescriptions given X 2. 20:03 Patient left the ED. mt2 Addendum: 01/19/2020 19:44 Addendum: Other pt and pt mother on phone requesting information about the antibody s g screening test and covid swab test results done during the last visit. updated that results have not posted yet, and that a physician or member of leadership would be contacted them directly when the results are back. pt mother stated understanding. 01/21/2020 13:46 Addendum: COVID-19 Result: Positive result giiven to ED physician to notify pt. d m5 Physician: Milan Pineda MD Physician was able to contact pt and pt was notified of positive COVID-19 swab result. Physician answered pt questions. Signatures: Dispatcher [facility] Lucia Hernandez, RN MARTHA dmZoe Hoover RN RN sv Gay, Steven, RN RN sg Waters, Shelly, JELLY MAKER-C JELLY MAKER-Csnw Memo Antonia Luis M Benítez Lavell Ruiz, MARTHA THOMAS Juliane Turner, RN RN mt2 Corrections: (The following items were deleted from the chart) 01/16 16:40 16:35 Chief complaint: Patient states: fever Tmax 99.7, cough, congestion, sore throat sv that has been ongoing for 2 months. sv 16:43 16:35 Acuity: JEFFRY 4 sv sv
[2020-01-17 20:26] VITALS: BP 109/69; TEMP 98; O2SAT 98
== END 2020-01-17 20:03 | disposition home or self-care (01) ==
LOC: ER 16:28
DX: U07.1 COVID-19 (principal); J45.991 Cough variant asthma; K20.0 Eosinophilic esophagitis
CPT/HCPCS: 36415; 71275; 80048; 81003; 82728; 84156; 84439; 84443; 85025; 86308; 96360; 96361; 99283; J7030; Q9967; U0002

== ENCOUNTER 2020-01-20 13:32 | Emergency (ER) | payer SELFPAY ==
--- OUTSIDE RECORDS SUMMARY | 2020-01-20 13:34 | XMS REPORT | Continuity of Care Document ---
:1985 Author Organization [employer] Care Team Providers Name Role Phone [employer] Unavailable Un available Problems Problem Status Onset [...] 10 day, # 10 Group Polymyxin B 77438 ml, 0 UNT/ML Otic Refill(s), Solution Pharmacy: [facility] #[id number], 177.8, cm, 12/02/19 10:55:00 CDT, Height, 63.182, kg, 12/02/19 10:55:00 CDT, Weight cephalexin 500 mg 500 mg = 1 Active oral capsule cap, PO, 020 Medical TID, X 10 Group day, # 30 cap, 0 Refill(s), Pharmacy: [facility] #[id number], 177.8, cm, 12/02/19 10:55:00 CDT, Height, 63.182, kg, 12/02/19 10:55:00 CDT, Weight Azithromycin 5 See Active Day Dose Pack 250 Instructions 020 M edical mg oral tablet , Take 2 Group tablets by mouth the first day then 1 tablet by mouth days 2-5., X 5 day, # 6 tab, 0 Refill(s), Pharmacy: [facility] #[id number] albuterol 90 2 puff, Active mcg/inh INHALATION, 020 Medical inhalation Q6H, PRN for Group aerosol wheezing, # 9 gm, 0 Refill(s), Pharmacy: [facility] #[id number] benzonatate 100 100 mg = 1 Active mg oral capsule cap, PO, 020 Medical TID, do not Group crush or chew, X 10 day, # 30 cap, 0 Refill(s), Pharmacy: [facility] #[id number] cetirizine 10 mg 10 mg = 1 Active oral tablet tab, PO, 018 Medical Daily, # 30 Group tab, 3 Refill(s), other omeprazole 20 mg 20 mg = 1 Active oral enteric tab, PO, 018 Medical coated tablet BID, # 30 Group tab, 0 Refill(s), other Nystatin 028571 1,000,000 No UNT Oral Tablet unit = 2 Longer 018 Medical tab, PO, Active Group BID, X 30 day, # 120 tab, 0 Refill(s), Pharmacy: [facility] [id number] Allergies, Adverse Reactions, Alerts Substance Category Reaction [...] Location Location Encounter Encounter Reason Attending ADM [facility] Stat us Source Details Type Number For Provider Date Date Visit Outpatient [id number] EN[facility]UEL [facility]08 [facility] Phone [phone] 01/06 01/08 Primary Message /2017 [facility] Outpatient [id number] ENMANUEL 03/13 [facility] Outpatient [id number] Enmanuel 03/13 03/14 Primary [place] /[address] [facility] Phone [id number] 03/14 03/16 Primary Message /2017 [facility] Outpatient [id number] Enmanuel 09/29 [facility] [id number] Enmanuel 09/30 09/30 Primary Pre-Reg [place] /2018 [facility] Outpatient [id number] Paresh 12/17 [facility] [id number] Paresh 01/19 01/19 [facility] Pre[facility]Reg [facility] /2018 N euro y [facility] Between [id number] 08/17 08/18 Primary Visit /2019 [facility] Outpatient [id number] Enmanuel 12/01 [facility] [place] [facility] Outpatient [id number] Enmanuel 12/01 12/02 Primary [facility] /2019 [facility] [place] Outpatient [id number] Enmanuel 12/14 [facility]2020 [facility] Between [id number] 12/14 12/15 Primary Visit /2019 [facility] Outpatient [id number] Kaity 12/17 [facility]2019 [place] [facility] Ambulatory [id number] Kaity 12/17 12/17 Primary Pre-Reg [place] /2019 [facility] Outpatient [id number] Enmanuel 01/13 [facility]2020 [place] [facility] Procedures No Data Provided for This [...] Smoking Cessation Counseling No entered on: 12/02/19 [id number] Social History TypeResponse 03/13/2018 [facility] [...]
--- OUTSIDE RECORDS SUMMARY | 2020-01-20 13:34 | XMS REPORT | Clinical Summary ---
:1985 Author Organization [facility] [employer] Address [address] [place] [address] Care Team Providers Name Role Phone MD [...] INFLUENZA VACCINE 02/02/2020 Results Not on fileafter 01/19/2019 Advance Directives For more information, please contact: [phone] Type Date Recorded Patient Informatics Manager Explanati on Advance Directives, Living Will and Medical Power of Trouble Clerk
[2020-01-20 15:53] LABS: Absolute Lymphocytes (CBC) 0.6 K/uL (0.7-4.9); Basophils % 0.5 % (0-1.3); Lymphocytes % 14.3 % (15.3-44.8); RBC Red Blood Cell Count 5.17 M/uL (4.33-5.43)
[2020-01-20 15:54] LABS: Protime INR 1.07
[2020-01-20 16:18] LABS: ALT/SGPT 30 U/L (12-78); AST/SGOT 26 U/L (15-37); Albumin 4.4 g/dL (3.4-5.0); Alkaline Phosphatase 89 U/L (45-117); BUN Blood Urea Nitrogen 8 mg/dL (7-18); Bicarbonate 23 mmol/L (21-32); Bilirubin Direct 0.2 mg/dL (0-0.2); Bilirubin Total 0.5 mg/dL (0.2-1.0); Glucose Level 85 mg/dL (74-106); Magnesium 2.3 mg/dL (1.8-2.4); NT PRO-BNP 26 pg/mL (<125); Potassium 3.9 mmol/L (3.5-5.1); Protein, Total 7.9 g/dL (6.4-8.2); Sodium Level 133 mmol/L (136-145); Troponin (Emerg Dept Use Only) < 0.02 ng/mL (0.0-0.045)
--- NOTE | 2020-01-20 16:18 | RAD REPORT ---
EXAM DESCRIPTION: RAD - Chest Single View - 01/20/2020 4:12 pm CLINICAL HISTORY: CHEST PAIN Chest pain. COMPARISON: Chest Single View dated 12/18/2019; Chest Pa And Lat (2 Views) dated 03/11/2019; Abdomen 1 View (KUB) dated 03/08/2019; Chest Single View dated 08/25/2017; Chest For Pe Angio dated 01/17/2020 FINDINGS: Portable technique limits examination quality. The lungs are grossly clear. The heart is normal in size. No displaced fractures. IMPRESSION: No acute intrathoracic process suspected.
--- NOTE | 2020-01-20 16:38 | EDPHYS ---
Physician Documentation [facility] Name: Emiliano Boothe Age: 34 yrs Sex: Male : 1985 Arrival Date: 01/20/2020 Time: 13:33 Bed 20 Private MD: ED Physician Milan Pineda HPI: 01/19 16:32 This 34 yrs old Male presents to ER via Ambulatory with complaints of Chest jr8 Pressure, Cough, Covid +. 16:32 The patient or guardian reports cough, that is intermittent, described as moderate, jr8 with no sputum. Onset: The symptoms/episode began/occurred gradually. Severity of symptoms: At their worst the symptoms were mild, in the emergency department the symptoms are unchanged. Modifying factors: The symptoms are alleviated by nothing, the symptoms are aggravated by nothing. Associated signs and symptoms: Pertinent positives: chest pain. The patient has not experienced similar symptoms in the past. The patient has been recently seen by a physician:. Patient recently diagnosed with COVID. Started to have cough that is progressing. Now having some chest tightness . Historical: - Allergies: 13:43 antibiotic-can't remember name; ll1 - PMHx: 13:43 bicuspid aorta; GERD; ll1 - PSHx: 13:43 None; ll1 - Immunization history:: Flu vaccine is not up to date. - Social history:: Smoking status: Patient denies any tobacco usage or history of. Patient/guardian denies using alcohol, street drugs. ROS: 16:32 Eyes: Negative for injury, pain, redness, and discharge, ENT: Negative for injury, jr8 pain, and discharge, Neck: Negative for injury, pain, and swelling, Abdomen/GI: Negative for abdominal pain, nausea, vomiting, diarrhea, and constipation, Back: Negative for injury and pain, MS/Extremity: Negative for injury and deformity, Skin: Negative for injury, rash, and discoloration, Neuro: Negative for headache, weakness, numbness, tingling, and seizure. 16:32 Cardiovascular: Positive for chest pain, Negative for edema, orthopnea, palpitations, paroxysmal nocturnal dyspnea. 16:32 Respiratory: Positive for cough, Negative for dyspnea on exertion, shortness of breath, sputum production, wheezing. Exam: 16:32 Eyes: Pupils equal round and reactive to light, extra-ocular motions intact. Lids and jr8 lashes normal. Conjunctiva and sclera are non-icteric and not injected. Cornea within normal limits. Periorbital areas with no swelling, redness, or edema. ENT: Nares patent. No nasal discharge, no septal abnormalities noted. Tympanic membranes are normal and external auditory canals are clear. Oropharynx with no redness, swelling, or masses, exudates, or evidence of obstruction, uvula midline. Mucous membranes moist. Neck: Trachea midline, no thyromegaly or masses palpated, and no cervical lymphadenopathy. Supple, full range of motion without nuchal rigidity, or vertebral point tenderness. No Meningismus. Cardiovascular: Regular rate and rhythm with a normal S1 and S2. No gallops, murmurs, or rubs. Normal PMI, no JVD. No pulse deficits. Respiratory: Lungs have equal breath sounds bilaterally, clear to auscultation and percussion. No rales, rhonchi or wheezes noted. No increased work of breathing, no retractions or nasal flaring. Abdomen/GI: Soft, non-tender, with normal bowel sounds. No distension or tympany. No guarding or rebound. No evidence of tenderness throughout. Back: No spinal tenderness. No costovertebral tenderness. Full range of motion. Skin: Warm, dry with normal turgor. Normal color with no rashes, no lesions, and no evidence of cellulitis. MS/ Extremity: Pulses equal, no cyanosis. Neurovascular intact. Full, normal range of motion. Neuro: Awake and alert, GCS 15, oriented to person, place, time, and situation. Cranial nerves II-XII grossly intact. Motor strength 5/5 in all extremities. Sensory grossly intact. Cerebellar exam normal. Normal gait. 16:32 ECG was reviewed by the Attending Physician. [facility] Vital Signs: 13:40 BP 113 / 90; Pulse 102; Resp 18; Temp 98.5; Pulse Ox 97% on R/A; Weight 61.23 kg; ll1 Height 5 ft. 9 in. (175.26 cm); Pain 6/10; 17:30 BP 118 / 75; Pulse 91; Resp 20 S; Pulse Ox 98% on R/A; em 13:40 Body Mass Index 19.94 (61.23 kg, 175.26 cm) 1 MDM: 15:26 Patient medically screened. [facility] 16:32 Data reviewed: vital signs, nurses notes, lab test result(s), EKG, radiologic studies, jr8 plain films. Data interpreted: Pulse oximetry: on room air is 97 %. Interpretation: normal. Counseling: I had a detailed discussion with the patient and/or guardian regarding: the historical points, exam findings, and any diagnostic results supporting the discharge/admit diagnosis, lab results, radiology results, the need for outpatient follow up, a family practitioner, to return to the emergency department if symptoms worsen or persist or if there are any questions or concerns that arise at home. 01/19 15: Order name: Basic Metabolic Panel; Complete Time: 01/19 15: Order name: CBC with Diff; Complete Time: 01/19 15: Order name: LFT's; Complete Time: 01/19 15:26 Order name: Magnesium; Complete Time: 01/19 15:26 Order name: NT PRO-BNP; Complete Time: 01/19 15:26 Order name: PT-INR; Complete Time: 01/19 15:26 Order name: Troponin (emerg Dept Use Only); Complete Time: 01/19 15:26 Order name: XRAY Chest (1 view); Complete Time: 01/19 15:26 Order name: EKG; Complete Time: :01/19 15:26 Order name: Cardiac monitoring; Complete Time: 16:01/19 15:26 Order name: EKG - Nurse/Tech; Complete Time: 01/19 15:26 Order name: IV Saline Lock; Complete Time: :01/19 15:26 Order name: Labs collected and sent; Complete Time: 16:01/19 15:26 Order name: O2 Per Protocol; Complete Time: 01/19 15:26 Order name: O2 Sat Monitoring; Complete Time: : EC:32 Rate is 88 beats/min. Rhythm is regular, Normal Sinus Rhythm. QRS [place] is Normal. RI jr8 interval is normal at 138 msec. QRS interval is normal at 84 msec. QT interval is normal at 374 msec. No Q waves. T waves are Normal. No ST changes noted. Clinical impression: Sinus arrythmia. Interpreted by me. Reviewed by me. Administered Medications: 17:52 Drug: Decadron 6 mg Route: IM; Site: right deltoid; em Disposition: 01/20 09:02 Co-signature as Attending Physician, Milan Pineda MD I agree with the assessment and kdr plan of care. Disposition: 01/20/20 16:37 Discharged to Home. Impression: Cough, SARS-associated coronavirus as the cause of diseases classified elsewhere. - Condition is Stable. - Discharge Instructions: Cough, Adult, COVID-19. - Prescriptions for Prednisone 20 mg Oral Tablet - take 1 tablet by ORAL route 2 times per day for 7 days; 14 tablet. Flovent HFA 110 mcg/actuation Inhalation Aerosol - inhale 2 puffs by INHALATION route 2 times per day for 10 days; 1 Inhaler. - Medication Reconciliation Form, Thank You Letter, Antibiotic Education, Prescription Opioid Use form. - Follow up: Private Physician; When: 1 week; Reason: Recheck today's complaints, Continuance of care, Re-evaluation by your physician. - Problem is new. - Symptoms have improved. - Notes: Recommend Vitamin C, Zinc, and D3 supplementation Daily Signatures: Dispatcher [employer] EDMS Milan Pineda MD MD [facility] Lavell Ruiz, RN RN Mart Wing PA PA jr8 Darius Soriano RN RN ll1 Corrections: (The following items were deleted from the chart) 01/19 17:56 16:37 01/20/2020 16:37 Discharged to Home. Impression: Cough; SARS-associated em coronavirus as the cause of diseases classified elsewhere. Condition is Stable. Forms are Medication Reconciliation Form, Thank You Letter, Antibiotic Education, Prescription Opioid Use. Follow up: Private Physician; When: 1 week; Reason: Recheck today's complaints, Continuance of care, Re-evaluation by your physician. Problem is new. Symptoms have improved. jr8
--- NOTE | 2020-01-20 16:38 | ER ---
Nurse's Notes [facility] Name: Emiliano Boothe Age: 34 yrs Sex: Male : 1985 Arrival Date: 01/20/2020 Time: 13:33 Bed 20 Private MD: Diagnosis: Cough;SARS-associated coronavirus as the cause of diseases classified elsewhere Presentation: 01/19 13:40 Chief complaint: Patient states: Cough continues with increased SOB and chest pressure ll1 with cough. Covid test result from Saturday is positive. Fever below 100 at home. +nausea and decreased appetite today. Coronavirus screen: Client denies travel out of the [place] in the last 14 days. congestion, cough unrelated to allergies, fatigue, fever, nausea, Client presents with at least one sign or symptom that may indicate coronavirus-19. Client reports previous positive COVID test result. Ebola Screen: Patient denies travel to an Ebola-affected area in the 21 days before illness onset. Initial Sepsis Screen: Does the patient meet any 2 criteria? HR > 90 bpm. No. Patient's initial sepsis screen is negative. Risk Assessment: Do you want to hurt yourself or someone else? Patient reports no desire to harm self or others. Onset of symptoms was January 13, 2020. 13:40 Method Of Arrival: Ambulatory ll1 13:40 Acuity: JEFFRY 3 ll1 Historical: - Allergies: 13:43 antibiotic-can't remember name; ll1 - PMHx: 13:43 bicuspid aorta; GERD; ll1 - PSHx: 13:43 None; ll1 - Immunization history:: Flu vaccine is not up to date. - Social history:: Smoking status: Patient denies any tobacco usage or history of. Patient/guardian denies using alcohol, street drugs. Screenin:18 Abuse screen: Denies threats or abuse. Nutritional screening: No deficits noted. em Tuberculosis screening: No symptoms or risk factors identified. Fall Risk None identified. Assessment: 15:15 General: Appears in no apparent distress. comfortable, Behavior is calm, cooperative, em appropriate for age, Denies fever. Pain: Complains of pain in chest Pain does not radiate. Quality of pain is described as "chest tightness" Pain began months ago. Neuro: Level of Consciousness is awake, alert, obeys commands, Oriented to person, place, time, situation, Appropriate for age. Cardiovascular: Capillary refill < 3 seconds Patient's skin is warm and dry. Rhythm is sinus rhythm. Respiratory: Reports cough that is productive, Airway is patent Respiratory effort is even, unlabored, Respiratory pattern is regular, symmetrical, Breath sounds are clear bilaterally. GI: Patient currently denies nausea, vomiting. Derm: Skin is intact, is healthy with good turgor, Skin is pink, warm \\T\\ dry. Musculoskeletal: Capillary refill < 3 seconds, Range of motion: intact in all extremities. 15:50 Reassessment: Patient appears in no apparent distress at this time. No changes from em previously documented assessment. Patient and/or family updated on plan of care and expected duration. Pain level reassessed. 17:30 Reassessment: Patient appears in no apparent distress at this time. Patient and/or em family updated on plan of care and expected duration. Pain level reassessed. Patient is alert, oriented x 3, equal unlabored respirations, skin warm/dry/pink. Vital Signs: 13:40 BP 113 / 90; Pulse 102; Resp 18; Temp 98.5; Pulse Ox 97% on R/A; Weight 61.23 kg; ll1 Height 5 ft. 9 in. (175.26 cm); Pain 6/10; 17:30 BP 118 / 75; Pulse 91; Resp 20 S; Pulse Ox 98% on R/A; em 13:40 Body Mass Index 19.94 (61.23 kg, 175.26 cm) ll1 ED Course: 13:33 Patient arrived in ED. ds1 13:42 Triage completed. ll1 13:43 Arm band placed on Patient notified of wait time. ll1 15:18 Lavell Ruiz, RN is Primary Nurse. em 15:18 Patient has correct armband on for positive identification. Pulse ox on. NIBP on. em 15:18 Patient maintains SpO2 saturation greater than 95% on room air. em 15:25 Mart Wing PA is PHCP. jr8 15:25 Milan Pineda MD is Attending Physician. jr8 15:50 Initial lab(s) drawn, by vt, sent to lab. Inserted saline lock: 20 gauge in right em antecubital area, using aseptic technique. Blood collected. 16:13 XRAY Chest (1 view) In Process Unspecified. EDMS 17:56 No provider procedures requiring assistance completed. IV discontinued, intact, em bleeding controlled, No redness/swelling at site. Pressure dressing applied. Administered Medications: 17:52 Drug: Decadron 6 mg Route: IM; Site: right deltoid; em Outcome: 16:37 Discharge ordered by MD. chinchilla 17:56 Discharged to home ambulatory. em 17:56 Condition: stable 17:56 Discharge instructions given to patient, Instructed on discharge instructions, follow up and referral plans. Demonstrated understanding of instructions, follow-up care, medications, Prescriptions given X 2. 17:56 Patient left the ED. em Signatures: Dispatcher [employer] EDLavell Hidalgo, RN RN Maria R Bazzi ds1 Mart Wing PA PA jr8 Darius Soriano RN RN ll1
[2020-01-20] MEDS ORDERED: dexAMETHasone 4 MG/ML VIAL ONE (18:01)
[2020-01-20 18:12] VITALS: BP 118/75; O2SAT 98
[2020-01-20 18:19] VITALS: TEMP 97.5
--- NOTE | 2020-01-21 08:40 | EKG ---
Test Date: 2020-01-20 Test Time: 15:47:39 Java Flex Developer: HERMINIO MEASUREMENT RESULTS: Intervals: Rate: 88 MN: 138 QRSD: 84 QT: 374 QTc: 452 [place]: P: 57 MN: 138 QRS: 21 T: 35 INTERPRETIVE STATEMENTS: Normal sinus rhythm with sinus arrhythmia Normal ECG Compared to ECG 08/25/2017 16:00:41 No significant changes Electronically Signed On 01-21-20 08:38:19 CDT by Mukul Davidson
== END 2020-01-20 17:56 | disposition home or self-care (01) ==
LOC: ER 13:32
DX: U07.1 COVID-19 (principal); Z88.1 Allergy status to other antibiotic agents
CPT/HCPCS: 36415; 71045; 80048; 80076; 83735; 83880; 84484; 85025; 85610; 93005; 96372; 99285

== ENCOUNTER 2020-01-23 10:49 | Emergency (ER) | payer SELFPAY ==
--- OUTSIDE RECORDS SUMMARY | 2020-01-23 10:51 | XMS REPORT | Clinical Summary ---
:1985 Author Organization [facility] Address [address] [place] [address] Care Team Providers Name Role Phone MD [...] Due Date Last Done Comments INFLUENZA VACCINE 03/03/2020 Results Not on fileafter 01/22/2019 Advance Directives For more information, please contact: [phone] Type Date Recorded Patient Director Of Orthopedics Explanati on Advance Directives, Living Will and Medical Power of Desktop Publishing Specialist
--- OUTSIDE RECORDS SUMMARY | 2020-01-23 10:52 | XMS REPORT | Continuity of Care Document ---
:1985 Author Organization [employer] [facility] Care Team Providers Name Role Phone [employer] Unavailable Un available Problems Problem Status Onset Classification Date Comments Sourc e Date Reported Headache Active 10/07/19 Problem 01/21/2020 Data migrated Me dical (finding) 14 from [employer] Group,Misc Centricity on her Ne uro 10/30/14. Fatigue Active 02/11/20 Problem 01/21/2020 Data migrated Me dical (finding) 12 from Group,Misc Centricity on her Ne uro 10/30/14. Hypogonadism Active 02/11/20 Problem 01/21/2020 Data migrated Medical (disorder) 12 from Group,Mis c Centricity on her Ne uro 10/30/14. 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 Medica l syndrome Group,Misc (disorder) her Neuro Allergic Active Problem 01/21/2020 Medica l bronchitis Group (disorder) Medications Medication Details Route Status Patient Ordering Order Source Instructions Provider Date Codeine Phosphate 5 mL, PO, Active 2 MG/ML / Q12H, PRN 020 Medical Guaifenesin 20 cough, X 10 Group MG/ML Oral day, # 100 Solution mL, 0 [Cheratussin] Refill(s), Pharmacy: [facility] #[id number], 177.8, cm, 12/02/19 10:55:00 CDT, Height, 63.182, kg, 12/02/19 10:55:00 CDT, Weight Hydrocortisone 10 2 drp, BOTH Active MH MG/ML / Neomycin EARS, QID, X 020 Me dical 3.5 MG/ML / 10 day, # 10 Group Polymyxin B 10183 ml, 0 UNT/ML Otic Refill(s), Solution Pharmacy: [facility] #[id number], 177.8, cm, 12/02/19 10:55:00 CDT, Height, 63.182, kg, 12/02/19 10:55:00 CDT, Weight cephalexin 500 mg 500 mg = 1 Active oral capsule cap, PO, 020 Medical TID, X 10 Group day, # 30 cap, 0 Refill(s), Pharmacy: [facility] #[id number], 177.8, cm, 12/02/19 10:55:00 CDT, Height, 63.182, kg, 12/02/19 10:55:00 CDT, Weight Azithromycin 5 See Active Day Dose Pack 250 Instructions 020 M edical mg oral tablet , Take 2 Group tablets by mouth the first day then 1 tablet by mouth days 2-5., X 5 day, # 6 tab, 0 Refill(s), [id number] albuterol 90 2 puff, Active mcg/inh INHALATION, 020 Medical inhalation Q6H, PRN for Group aerosol wheezing, # 9 gm, 0 Refill(s), [id number] benzonatate 100 100 mg = 1 Active MH mg oral capsule cap, PO, 020 Medical TID, do not Group crush or chew, X 10 day, # 30 cap, 0 Refill(s), [id number] cetirizine 10 mg 10 mg = 1 Active MH oral tablet tab, PO, 018 Medical Daily, # 30 Group tab, 3 Refill(s), other omeprazole 20 mg 20 mg = 1 Active MH oral enteric tab, PO, 018 Medical coated tablet BID, # 30 Group tab, 0 Refill(s), other Nystatin [id number] 1,000,000 No UNT Oral Tablet unit = 2 Longer 018 Medical tab, PO, Active Group BID, X 30 day, # 120 tab, 0 Refill(s), Pharmacy: [id number] Allergies, Adverse Reactions, Alerts Substance Category Reaction Severity Reaction Status Date Comments S ource type Reported No Known Assertion Drug Medication allergy Medic al Allergies Group Immunizations [...] Location Location Encounter Encounter Reason Attending ADM VT Stat Source Details Type Number For Provider Date Date Visit Outpatient [id number] ENMANUEL 02/08 [facility] Phone [id number] 01/06 01/08 Primary Message /2017 [facility] [id number] [facility] 03/13 [facility] Outpatient [id number] Enmanuel 03/13 03/14 Primary Sustache /2017 [facility] Phone [id number] 03/14 03/16 Primary Message /2017 [facility] Outpatient [id number] Enmanuel 09/29 [facility] [place] [facility] Ambulatory [id number] Enmanuel 09/30 09/30 Primary Pre-Reg Sustache /2018 [facility] Outpatient [id number] Paresh 12/17 [facility] [id number] Paresh 01/19 01/19 [facility] Pre-Reg Roque Jr /2018 N euro y [facility] Between [id number] 08/17 08/18 Primary Visit /2019 [facility] Outpatient [id number] Enmanuel 12/01 [facility]2019 Nik[facility] Jr [facility] Outpatient [id number] Enmanuel 12/01 12/02 Primary Sustache /2019 [facility] Outpatient [id number] Enmanuel 12/14 [facility] /2019 Niko Jr [facility] Between [id number] 12/14 12/15 Primary Visit /2019 [facility] Outpatient [id number] Kaity 12/17 Active [facility] Ambulatory [id number] Kaity 12/17 12/17 Primary Pre-Reg Laguerre /2019 [facility] Outpatient [id number] Enmanuel 01/13 [facility] [place] [facility] Between [id number] 01/17 01/18 Primary Visit /2019 [facility] Procedures No Data Provided for This Section [...] Smoking Cessation Counseling No entered on: 12/02/19 [id number] Social History TypeResponse 03/13/2018 [facility] Smoking Status Never smoker; Type: Pipe; Exposure to To bacco Smoke None; Cigarette Smoking Last 365 Days No; Reg Smoking Cessation Counseling No entered on: 10/11/18 Family History No Data Provided for This Section Advance Directives No Data Provided for This Section Functional Status No Data Provided for This Section
--- OUTSIDE RECORDS SUMMARY | 2020-01-23 10:52 | XMS REPORT | Summary of Care ---
:1985 Author Organization [facility] [place] Address [id number] [place] [address], [place] [address]- Encounter HQ Encntr_alias(FIN) [id number] Date(s): 01/18/20 - 01/19/20 [facility] Primary Care [address] [place], [place] [id number]- [phone] Vital Signs No data available for this [...] Reactions, Alerts No Known Medication Allergies Medications Cheratussin AC oral syrup 5 mL, PO, Q12H, PRN cough, X 10 day, # 100 mL, 0 Refill(s), Pharmacy: [facility] #[id number], 177.8, cm, 12/02/19 10:55:00 CDT, Height, 63.182, kg, 12/02/19 10:55:00 CDT, Weight Start Date: 01/19/20 Stop Date: 01/29/20 Status: Ordered Results No data available for [...] Smoking Cessation Counseling No entered on: 12/02/19 [id number] Assessment and Plan No data available for this section
--- NOTE | 2020-01-23 12:16 | RAD REPORT ---
EXAM DESCRIPTION: Luis Carlos Single View01/23/2020 12:00 pm CLINICAL HISTORY: Cough COMPARISON: January 20, 2020 FINDINGS: The lungs appear clear of acute infiltrate. The heart is normal size IMPRESSION: No acute abnormalities displayed
[2020-01-23] MEDS ORDERED: AZITHROMYCIN 250 MG TAB ONE (12:28)
[2020-01-23] MEDS ORDERED: ASPIRIN 81 MG CHEWABLE TABLET ONE (12:28)
[2020-01-23] MEDS ORDERED: dexAMETHasone 10 MG/ML VIAL ONE (12:29)
[2020-01-23] MEDS ORDERED: FAMOTIDINE 20 MG/2 ML VIAL IV ONE (12:29)
[2020-01-23] MEDS ORDERED: CEFTRIAXONE/SWI 1gm 1 GM/10 ML SYR ONE (12:29)
[2020-01-23] MEDS ORDERED: ALBUTEROL INHALER 60 PUFF/8 GM IH ONE (12:29)
[2020-01-23] MEDS ORDERED: NA CHLORIDE 0.9% 500 ML ONE (12:29)
[2020-01-23 12:53] LABS: Absolute Lymphocytes (CBC) 0.4 K/uL (0.7-4.9); Basophils % 0.2 % (0-1.3); Hematocrit 42.4 % (39.6-49.0); Lymphocytes % 4.8 % (15.3-44.8); MPV 8.6 fL (7.6-11.3); RBC Red Blood Cell Count 5.11 M/uL (4.33-5.43)
[2020-01-23 13:26] LABS: ALT/SGPT 41 U/L (12-78); AST/SGOT 40 U/L (15-37); Albumin 4.3 g/dL (3.4-5.0); Alkaline Phosphatase 89 U/L (45-117); BUN Blood Urea Nitrogen 10 mg/dL (7-18); Bicarbonate 22 mmol/L (21-32); Bilirubin Direct 0.2 mg/dL (0-0.2); Bilirubin Total 0.6 mg/dL (0.2-1.0); Glucose Level 93 mg/dL (74-106); Magnesium 2.3 mg/dL (1.8-2.4); NT PRO-BNP 50 pg/mL (<125); Potassium 3.7 mmol/L (3.5-5.1); Protein, Total 7.7 g/dL (6.4-8.2); Sodium Level 137 mmol/L (136-145); Troponin (Emerg Dept Use Only) < 0.02 ng/mL (0.0-0.045)
--- NOTE | 2020-01-23 13:42 | ER ---
Nurse's Notes [facility] Name: Emiliano Boothe Age: 34 yrs Sex: Male : 1985 Arrival Date: 01/23/2020 Time: 10:50 Bed 20 Private MD: Diagnosis: Dyspnea;SARS-associated coronavirus as the cause of diseases classified elsewhere-Covid 19 Presentation: 01/22 11:21 Chief complaint: Chief complaint: Patient states: "I was just tested for coronavirus aa5 about 10 days ago and it was positive but a few days ago I started having some shortness of breath, some chest congestion, and a little bit of chest pain". Pt also reports productive cough with yellowish sputum, denies fever. 11:21 Acuity: JEFFRY 3 aa5 11:21 Coronavirus screen: congestion, cough unrelated to allergies, shortness of breath, aa5 Client presents with at least one sign or symptom that may indicate coronavirus-19. Standard/surgical mask placed on the client. Provider contacted for isolation considerations. Client reports previous positive COVID test result. Ebola Screen: Patient negative for fever greater than or equal to 101.5 degrees Fahrenheit, and additional compatible Ebola Virus Disease symptoms. Initial Sepsis Screen: Does the patient meet any 2 criteria? No. Patient's initial sepsis screen is negative. Does the patient have a suspected source of infection? No. Patient's initial sepsis screen is negative. Risk Assessment: Do you want to hurt yourself or someone else? Patient reports no desire to harm self or others. Onset of symptoms was January 2020. 11:21 Method Of Arrival: Ambulatory aa5 Historical: - Allergies: 11:22 antibiotic-can't remember name; aa5 - PMHx: 11:22 bicuspid aorta; GERD; aa5 - PSHx: 11:22 None; aa5 - Immunization history:: Adult Immunizations unknown. - Social history:: Smoking status: Patient denies any tobacco usage or history of. - Family history:: not pertinent. Screenin:00 Abuse screen: Denies threats or abuse. Denies injuries from another. Nutritional ca1 screening: No deficits noted. Tuberculosis screening: No symptoms or risk factors identified. Fall Risk IV access (20 points). Assessment: 12:00 General: Appears in no apparent distress. comfortable, Behavior is calm, cooperative, ca1 appropriate for age. Pain: Denies pain. Neuro: Level of Consciousness is awake, alert, obeys commands, Oriented to person, place, time, situation. Cardiovascular: Heart tones S1 S2 present Capillary refill < 3 seconds Patient's skin is warm and dry. Rhythm is sinus rhythm. Respiratory: Reports shortness of breath on exertion cough that is non-productive, Airway is patent Respiratory effort is even, unlabored, Respiratory pattern is regular, symmetrical, Breath sounds are clear bilaterally. GI: Abdomen is flat, non-distended, Bowel sounds present X 4 quads. Abd is soft and non tender X 4 quads. : No deficits noted. No signs and/or symptoms were reported regarding the genitourinary system. EENT: No deficits noted. No signs and/or symptoms were reported regarding the EENT system. Derm: Skin is intact, is healthy with good turgor, Skin is pink, warm \\T\\ dry. Musculoskeletal: Circulation, motion, and sensation intact. Capillary refill < 3 seconds. 12:55 Reassessment: Patient appears in no apparent distress at this time. Patient and/or ca1 family updated on plan of care and expected duration. Pain level reassessed. Patient is alert, oriented x 3, equal unlabored respirations, skin warm/dry/pink. 13:55 Reassessment: Patient appears in no apparent distress at this time. Patient and/or ca1 family updated on plan of care and expected duration. Pain level reassessed. Patient is alert, oriented x 3, equal unlabored respirations, skin warm/dry/pink. Vital Signs: 11:21 BP 131 / 84; Pulse 92; Resp 18 S; Temp 98.2(O); Pulse Ox 100% on R/A; Weight 61.23 kg aa5 (R); Height 5 ft. 9 in. (175.26 cm) (R); Pain 5/10; 12:55 BP 130 / 80; Pulse 99; Resp 15 S; Pulse Ox 100% on R/A; ca1 13:55 BP 111 / 70; Pulse 95; Resp 15 S; Pulse Ox 98% on R/A; ca1 11:21 Body Mass Index 19.94 (61.23 kg, 175.26 cm) aa5 ED Course: 10:50 Patient arrived in ED. as 11:21 Arm band placed on Patient placed in an exam room, on a stretcher. aa5 11:22 Desmond Woody MD is Attending Physician. junaid 11:35 Triage completed. aa5 12:00 XRAY Chest (1 view) In Process Unspecified. EDMS 12:00 Patient has correct armband on for positive identification. Placed in gown. Bed in low ca1 position. Call light in reach. Side rails up X2. ankle patch molder on. Pulse ox on. NIBP on. 12:05 Marlyn Monroe, MATRHA is Primary Nurse. ca1 12:25 No provider procedures requiring assistance completed. Inserted saline lock: 20 gauge ca1 in right antecubital area, using aseptic technique. Blood collected. 12:25 Initial lab(s) drawn, by me, sent to lab. First set of blood cultures drawn by me. ca1 12:35 Inserted saline lock: 22 gauge in left wrist, using aseptic technique. Blood collected. ca1 12:35 Second set of blood cultures drawn by me. ca1 13:41 Klaus Marcus MD is Referral Physician. junaid 14:16 IV discontinued, intact, bleeding controlled, No redness/swelling at site. Pressure ca1 dressing applied. Administered Medications: 12:10 Drug: Albuterol HFA Inhaler 4 puffs Route: Inhalation; ca1 12:15 Drug: Aspirin 162 mg Route: PO; ca1 13:00 Follow up: Response: No adverse reaction ca1 12:26 Drug: NS 0.9% 500 ml Route: IV; Rate: bolus; Site: right antecubital; ca1 13:00 Follow up: Response: No adverse reaction; IV Status: Completed infusion; IV Intake: ca1 500ml 12:27 Drug: Rocephin 1 grams Route: IV; Rate: per protocol; Site: right antecubital; ca1 13:00 Follow up: Response: No adverse reaction; IV Status: Completed infusion ca1 12:27 Drug: Pepcid 20 mg Route: IVP; Site: right antecubital; ca1 13:00 Follow up: Response: No adverse reaction ca1 12:29 Drug: Decadron - Dexamethasone 6 mg Route: IVP; Site: right antecubital; ca1 13:30 Follow up: Response: No adverse reaction ca1 12:40 Drug: Zithromax 500 mg Route: PO; ca1 13:30 Follow up: Response: No adverse reaction ca1 Intake: 13:00 IV: 500ml; Total: 500ml. ca1 Outcome: 13:41 Discharge ordered by . junaid 14:16 Discharged to home ambulatory. ca1 14:16 Condition: stable 14:16 Discharge instructions given to patient, Instructed on discharge instructions, follow up and referral plans. medication usage, Demonstrated understanding of instructions, follow-up care, medications, Prescriptions given X 4. 14:17 Patient left the ED. ca1 Signatures: Dispatcher [employer] EDVT Desmond Woody MD MD cha Martinez, Amelia as Calderon, Audri RN RN aa5 Marlyn Monroe RN RN ca1 Corrections: (The following items were deleted from the chart) 11:36 11:21 Chief complaint: aa5 aa5 11:40 11:21 Chief complaint: aa5 aa5
--- NOTE | 2020-01-23 13:42 | EDPHYS ---
Physician Documentation [facility] Name: Emiliano Boothe Age: 34 yrs Sex: Male : 1985 Arrival Date: 01/23/2020 Time: 10:50 Bed 20 Private MD: ED Physician Desmond Woody HPI: 01/22 11:46 This 34 yrs old Male presents to ER via Ambulatory with complaints of junaid Shortness Of Breath - covid+. 11:46 The patient has shortness of breath at rest. Onset: The symptoms/episode began/occurred junaid 3 day(s) ago. Duration: The symptoms are continuous, and are steadily getting worse. The patient's shortness of breath has no apparent modifying factors. Associated signs and symptoms: Pertinent positives: non-productive cough. Severity of symptoms: At their worst the symptoms were mild in the emergency department the symptoms are unchanged. The patient has not experienced similar symptoms in the past. Historical: - Allergies: 11:22 antibiotic-can't remember name; aa5 - PMHx: 11:22 bicuspid aorta; GERD; aa5 - PSHx: 11:22 None; aa5 - Immunization history:: Adult Immunizations unknown. - Social history:: Smoking status: Patient denies any tobacco usage or history of. - Family history:: not pertinent. ROS: 11:46 Constitutional: Negative for fever, chills, and weight loss, Eyes: Negative for injury, junaid pain, redness, and discharge, ENT: Negative for injury, pain, and discharge, Neck: Negative for injury, pain, and swelling, Cardiovascular: Negative for chest pain, palpitations, and edema, Abdomen/GI: Negative for abdominal pain, nausea, vomiting, diarrhea, and constipation, Back: Negative for injury and pain, : Negative for injury, bleeding, discharge, and swelling, MS/Extremity: Negative for injury and deformity, Skin: Negative for injury, rash, and discoloration, Neuro: Negative for headache, weakness, numbness, tingling, and seizure, Psych: Negative for depression, anxiety, suicide ideation, homicidal ideation, and hallucinations, Allergy/Immunology: Negative for hives, rash, and allergies, Endocrine: Negative for neck swelling, polydipsia, polyuria, polyphagia, and marked weight changes, Hematologic/Lymphatic: Negative for swollen nodes, abnormal bleeding, and unusual bruising. 11:46 Respiratory: Positive for cough, shortness of breath. Exam: 11:50 Constitutional: This is a well developed, well nourished patient who is awake, alert, junaid and in no acute distress. Head/Face: Normocephalic, atraumatic. Eyes: Pupils equal round and reactive to light, extra-ocular motions intact. Lids and lashes normal. Conjunctiva and sclera are non-icteric and not injected. Cornea within normal limits. Periorbital areas with no swelling, redness, or edema. ENT: Nares patent. No nasal discharge, no septal abnormalities noted. Tympanic membranes are normal and external auditory canals are clear. Oropharynx with no redness, swelling, or masses, exudates, or evidence of obstruction, uvula midline. Mucous membranes moist. Neck: Trachea midline, no thyromegaly or masses palpated, and no cervical lymphadenopathy. Supple, full range of motion without nuchal rigidity, or vertebral point tenderness. No Meningismus. Chest/axilla: Normal chest wall appearance and motion. Nontender with no deformity. No lesions are appreciated. Cardiovascular: Regular rate and rhythm with a normal S1 and S2. No gallops, murmurs, or rubs. Normal PMI, no JVD. No pulse deficits. Respiratory: Lungs have equal breath sounds bilaterally, clear to auscultation and percussion. No rales, rhonchi or wheezes noted. No increased work of breathing, no retractions or nasal flaring. Abdomen/GI: Soft, non-tender, with normal bowel sounds. No distension or tympany. No guarding or rebound. No evidence of tenderness throughout. Back: No spinal tenderness. No costovertebral tenderness. Full range of motion. Skin: Warm, dry with normal turgor. Normal color with no rashes, no lesions, and no evidence of cellulitis. MS/ Extremity: Pulses equal, no cyanosis. Neurovascular intact. Full, normal range of motion. Neuro: Awake and alert, GCS 15, oriented to person, place, time, and situation. Cranial nerves II-XII grossly intact. Motor strength 5/5 in all extremities. Sensory grossly intact. Cerebellar exam normal. Normal gait. Psych: Awake, alert, with orientation to person, place and time. Behavior, mood, and affect are within normal limits. 11:50 Musculoskeletal/extremity: Extremities: all appear grossly normal, with no appreciated pain with palpation, DVT Exam: No signs of deep vein thrombosis. no pain, no swelling, no tenderness, negative Homans' sign noted on exam, no appreciated bluish discoloration, no erythema, no increased warmth. 12:47 ECG was reviewed by the Attending Physician. [facility] Vital Signs: 11:21 BP 131 / 84; Pulse 92; Resp 18 S; Temp 98.2(O); Pulse Ox 100% on R/A; Weight 61.23 kg aa5 (R); Height 5 ft. 9 in. (175.26 cm) (R); Pain 5/10; 12:55 BP 130 / 80; Pulse 99; Resp 15 S; Pulse Ox 100% on R/A; ca1 13:55 BP 111 / 70; Pulse 95; Resp 15 S; Pulse Ox 98% on R/A; ca1 11:21 Body Mass Index 19.94 (61.23 kg, 175.26 cm) aa5 MDM: 11:22 Patient medically screened. junaid 11:51 Differential diagnosis: Bronchitis pneumonia, Pneumothorax pulmonary edema, Pulmonary junaid Embolism. Antibiotic administration: Rocephin and Zithromax given. The patient's Wells Deep Vein Thrombosis Score was calculated as follows: Total Score: 0-2 Pts- Low Risk. The patient's pulmonary embolism risk score was calculated as follows: Total Score: 3-6 points. This patient was found to be at moderate risk for a pulmonary embolism by using the Well's assessment criteria. Immunization status:. Data reviewed: vital signs, nurses notes, lab test result(s), EKG, radiologic studies. Data interpreted: hall monitor: rate is 92 beats/min, rhythm is regular, Pulse oximetry: on room air is 100 %. Test interpretation: by ED physician or midlevel provider: ECG, plain radiologic studies. 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 ED course: labs and studies reviewed, pt better and stable, will treat as outpatient and follow up , return if worse. 01/22 11:37 Order name: Basic Metabolic Panel; Complete Time: 13:41 junaid 01/22 11:37 Order name: CBC with Diff [facility] 01/22 11:37 Order name: LFT's; Complete Time: 13:41 [facility] 01/22 11:37 Order name: Magnesium; Complete Time: 13:41 [facility] 01/22 11:37 Order name: NT PRO-BNP; Complete Time: 13:41 [facility] 01/22 11:37 Order name: Troponin (emerg Dept Use Only); Complete Time: 13:41 [facility] 01/22 11:37 Order name: XRAY Chest (1 view); Complete Time: 12:45 [facility] 01/22 11:37 Order name: Blood Culture Adult (2) [facility] 01/22 11:37 Order name: D-Dimer; Complete Time: 13:41 [facility] 01/22 13:33 Order name: CBC Smear Scan EDAZ 01/22 11:37 Order name: EKG; Complete Time: 11:38 [facility] 01/22 11:37 Order name: Cardiac monitoring; Complete Time: 12:50 [facility] 01/22 11:37 Order name: EKG - Nurse/Tech; Complete Time: 12:50 [facility] 01/22 11:37 Order name: IV Saline Lock; Complete Time: 12:50 [facility] 01/22 11:37 Order name: Labs collected and sent; Complete Time: 12:50 [facility] 01/22 11:37 Order name: O2 Per Protocol; Complete Time: 12:50 [facility] 01/22 11:37 Order name: O2 Sat Monitoring; Complete Time: 12:50 [facility] EC:47 Rate is 85 beats/min. Rhythm is regular. QRS Halls is Normal. IN interval is normal. QRS junaid interval is normal. QT interval is normal. No Q waves. T waves are Normal. No ST changes noted. Clinical impression: Normal ECG and No evidence of ischemia. Interpreted by me. Reviewed by me. Administered Medications: 12:10 Drug: Albuterol HFA Inhaler 4 puffs Route: Inhalation; ca1 12:15 Drug: Aspirin 162 mg Route: PO; ca1 13:00 Follow up: Response: No adverse reaction ca1 12: Drug: NS 0.9% 500 ml Route: IV; Rate: bolus; Site: right antecubital; ca1 13:00 Follow up: Response: No adverse reaction; IV Status: Completed infusion; IV Intake: ca1 500ml 12: Drug: Rocephin 1 grams Route: IV; Rate: per protocol; Site: right antecubital; ca1 13:00 Follow up: Response: No adverse reaction; IV Status: Completed infusion ca1 12:27 Drug: Pepcid 20 mg Route: IVP; Site: right antecubital; ca1 13:00 Follow up: Response: No adverse reaction ca1 12:29 Drug: Decadron - Dexamethasone 6 mg Route: IVP; Site: right antecubital; ca1 13:30 Follow up: Response: No adverse reaction ca1 12:40 Drug: Zithromax 500 mg Route: PO; ca1 13:30 Follow up: Response: No adverse reaction ca1 Disposition: 01/23/20 13:41 Discharged to Home. Impression: Dyspnea, SARS-associated coronavirus as the cause of diseases classified elsewhere - Covid 19 . - Condition is Stable. - Discharge Instructions: Shortness of Breath, Upper Respiratory Infection, Adult, Shortness of Breath, [id number], Upper Respiratory Infection, Adult, [id number], Aspirin and Your Heart, COVID-19. - Prescriptions for dexamethasone 2 mg Oral tablet - take 1 tablet by ORAL route 3 times per day; 15 tablet. Pepcid 20 mg Oral Tablet - take 1 tablet by ORAL route every 12 hours for 10 days; 20 tablet. Albuterol Sulfate 90 mcg/actuation - inhale 1-2 puff by INHALATION route every 4-6 hours; 1 Inhaler. Zithromax 500 mg Oral Tablet - take 1 tablet by ORAL route once daily for 4 days; 4 tablet. - Medication Reconciliation Form, Thank You Letter, Antibiotic Education, Prescription Opioid Use form. - Follow up: Private Physician; When: 2 - 3 days; Reason: Recheck today's complaints, Continuance of care, Re-evaluation by your physician. Follow up: Klaus Marcus; When: 2 - 3 days; Reason: Recheck today's complaints, Re-evaluation by your physician. - Problem is new. - Symptoms have improved. Signatures: Dispatcher [employer] Desmond Mckeon MD MD cha Calderon, Audri, RN RN aa5 Marlyn Monroe RN RN ca1 Corrections: (The following items were deleted from the chart) 14:17 13:41 01/23/2020 13:41 Discharged to Home. Impression: Dyspnea; SARS-associated ca1 coronavirus as the cause of diseases classified elsewhere - Covid 19 . Condition is Stable. Discharge Instructions: Shortness of Breath, Upper Respiratory Infection, Adult, Shortness of Breath, [id number], Upper Respiratory Infection, Adult, [id number], Aspirin and Your Heart, COVID-19. Prescriptions for dexamethasone 2 mg Oral tablet - take 1 tablet by ORAL route 3 times per day; 15 tablet, Pepcid 20 mg Oral Tablet - take 1 tablet by ORAL route every 12 hours for 10 days; 20 tablet, Albuterol Sulfate 90 mcg/actuation - inhale 1-2 puff by INHALATION route every 4-6 hours; 1 Inhaler, Zithromax 500 mg Oral Tablet - take 1 tablet by ORAL route once daily for 4 days; 4 tablet. and Forms are Medication Reconciliation Form, Thank You Letter, Antibiotic Education, Prescription Opioid Use. Follow up: Private Physician; When: 2 - 3 days; Reason: Recheck today's complaints, Continuance of care, Re-evaluation by your physician. Follow up: Klaus Marcus; When: 2 - 3 days; Reason: Recheck today's complaints, Re-evaluation by your physician. Problem is new. Symptoms have improved. junaid
[2020-01-23 14:12] LABS: Blood Morphology Comment NOT SEEN (NOT SEEN); Platelet Estimate ADEQ; Urine White Blood Cell Casts OK
== END 2020-01-23 14:17 | disposition home or self-care (01) ==
LOC: ER 10:49
DX: U07.1 COVID-19 (principal); R06.00 Dyspnea, unspecified; Z88.1 Allergy status to other antibiotic agents
CPT/HCPCS: 36415; 71045; 80048; 80076; 83735; 83880; 84484; 85025; 85379; 87040; 93005; 96365; 96375; 99285; J0696; J1100; J7040

== ENCOUNTER 2021-01-10 17:57 | Emergency (ER) | payer SELFPAY ==
--- NOTE | 2021-01-10 20:09 | RAD REPORT ---
EXAM DESCRIPTION: RAD - Chest Pa And Lat (2 Views) - 01/10/2021 7:48 pm CLINICAL HISTORY: SOB Chest pain. COMPARISON: Chest Single View dated 01/23/2020; Chest Single View dated 01/20/2020; Chest Single View dated 12/18/2019; Chest Pa And Lat (2 Views) dated 03/11/2019 FINDINGS: The lungs are clear. The heart is normal in size. No displaced fractures. IMPRESSION: No acute or concerning finding suspected.
[2021-01-10 20:26] LABS: Absolute Lymphocytes (CBC) 1.1 K/uL (0.7-4.9); Basophils % 0.5 % (0-1.3); Hematocrit 45.4 % (39.6-49.0); Lymphocytes % 13.7 % (15.3-44.8); RBC Red Blood Cell Count 5.15 M/uL (4.33-5.43)
[2021-01-10] MEDS ORDERED: ASPIRIN 81 MG CHEWABLE TABLET ONE (20:36)
[2021-01-10] MEDS ORDERED: IBUPROFEN 400 MG TAB ONE (20:37)
[2021-01-10] MEDS ORDERED: FAMOTIDINE 20 MG/2 ML VIAL IV ONE (20:37)
[2021-01-10] MEDS ORDERED: CEFTRIAXONE/SWI 1gm 1 GM/10 ML SYR ONE (20:37)
[2021-01-10] MEDS ORDERED: IBUPROFEN 200 MG TAB PO ONE (20:37)
[2021-01-10 20:51] LABS: BUN Blood Urea Nitrogen 15 mg/dL (7-18); Bicarbonate 26 mmol/L (21-32); Glucose Level 96 mg/dL (74-106); Potassium 3.8 mmol/L (3.5-5.1); Sodium Level 141 mmol/L (136-145)
[2021-01-10 20:52] LABS: ALT/SGPT 29 U/L (12-78); AST/SGOT 13 U/L (15-37); Albumin 4.6 g/dL (3.4-5.0); Alkaline Phosphatase 94 U/L (45-117); Bilirubin Total 0.8 mg/dL (0.2-1.0); Protein, Total 7.9 g/dL (6.4-8.2); Troponin (Emerg Dept Use Only) < 0.02 ng/mL (0.0-0.045)
--- NOTE | 2021-01-10 21:15 | ER ---
Nurse's Notes [facility] Name: Emiliano Boothe Age: 35 yrs Sex: Male : 1985 Arrival Date: 01/10/2021 Time: 18:00 Bed Treatment Private MD: Diagnosis: Acute upper respiratory infection, unspecified;Contact with and (suspected) exposure to other viral communicable diseases-COVID 19 Presentation: 01/10 19:08 Chief complaint: Patient states: SOB, Chest pain, fever, chills, congestion since kg 01/05. Coronavirus screen: Client denies travel out of the [place] in the last 14 days. At this time, unable to obtain information related to travel outside the [place] Client presents with at least one sign or symptom that may indicate coronavirus-19. Standard/surgical mask placed on the client. Provider contacted for isolation considerations. Ebola Screen: Patient negative for fever greater than or equal to 101.5 degrees Fahrenheit, and additional compatible Ebola Virus Disease symptoms Patient denies exposure to infectious person. Patient denies travel to an Ebola-affected area in the 21 days before illness onset. No symptoms or risks identified at this time. Initial Sepsis Screen: Does the patient meet any 2 criteria? No. Patient's initial sepsis screen is negative. Does the patient have a suspected source of infection? No. Patient's initial sepsis screen is negative. Risk Assessment: Do you want to hurt yourself or someone else? Patient reports no desire to harm self or others. Onset of symptoms was January 05, 2021. 19:08 Method Of Arrival: Ambulatory kg 19:08 Acuity: JEFFRY 4 kg Triage Assessment: 19:11 General: Appears in no apparent distress. Behavior is calm, cooperative, appropriate kg for age, quiet. Pain: Denies pain. 20:37 Respiratory: Reports cough that is dry, persistent. lp1 Historical: - Allergies: 19:11 antibiotic-can't remember name; kg - PMHx: 19:11 GERD; bicuspid aorta; kg - PSHx: 19:11 None; kg - Immunization history:: Adult Immunizations not up to date, Client reports having NOT received the Covid vaccine. - Social history:: Smoking status: Patient denies any tobacco usage or history of. Screenin:13 Abuse screen: Denies threats or abuse. Denies injuries from another. Nutritional kg screening: No deficits noted. Tuberculosis screening: No symptoms or risk factors identified. Fall Risk None identified. Assessment: 20:37 Reassessment: Patient appears in no apparent distress at this time. No changes from lp1 previously documented assessment. General: Appears in no apparent distress. Pain: Denies pain. Neuro: No deficits noted. Cardiovascular: No deficits noted. Vital Signs: 19:08 BP 121 / 74; Pulse 96; Resp 20; Temp 99.5(TE); Pulse Ox 100% on R/A; Weight 65.77 kg; kg Height 5 ft. 9 in. (175.26 cm); Pain 0/10; 20:36 BP 119 / 67; Pulse 98; Resp 20; Pulse Ox 96% on R/A; lp1 19:08 Body Mass Index 21.41 (65.77 kg, 175.26 cm) kg ED Course: 18:00 Patient arrived in ED. mr 19:08 Gloria Del Cid, RN is Primary Nurse. kg 19:11 Triage completed. kg 19:11 Arm band placed on. kg 19:13 Patient has correct armband on for positive identification. kg 19:41 Desmond Woody MD is Attending Physician. junaid 19:47 XRAY Chest Pa And Lat (2 Views) In Process Unspecified. EDMS 20:32 EKG completed in triage. Results shown to MD. lp1 20:38 No provider procedures requiring assistance completed. Inserted saline lock: 22 gauge lp1 in left antecubital area, using aseptic technique. 21:14 Klaus Marcus MD is Referral Physician. junaid 21:33 IV discontinued, bleeding controlled. lp1 Administered Medications: 20:32 Drug: Pepcid (famotidine) 20 mg Route: IVP; Site: left antecubital; lp1 21:00 Follow up: Urine output 2 ml; Response: No adverse reaction lp1 21:35 Follow up: Response: No adverse reaction lp1 20:32 Drug: Rocephin (cefTRIAXone) 1 grams Route: IV; Rate: per protocol; Site: left lp1 antecubital; 21:00 Follow up: Urine output 10 ml; Response: No adverse reaction lp1 21:34 Follow up: Response: No adverse reaction lp1 21:38 Follow up: IV Status: Completed infusion; IV Intake: 10ml lp1 20:32 Drug: Aspirin Chewable Tablet 162 mg Route: PO; lp1 21:00 Follow up: Response: No adverse reaction lp1 21:34 Follow up: Response: No adverse reaction lp1 20:33 Drug: Motrin (ibuprofen) 600 mg Route: PO; lp1 21:00 Follow up: Response: No adverse reaction lp1 21:34 Follow up: Response: No adverse reaction lp1 21:35 Follow up: Response: No adverse reaction lp1 21:20 Not Given ( changed order from IV to PO): Zithromax (azithromycin) 500 mg IVPB once lp1 over 1 hrs; mix in 250 mL NS 21:34 Drug: AZITHromycin 500 mg Route: PO; lp1 21:35 Follow up: Response: No adverse reaction lp1 Intake: 21:38 IV: 10ml; Total: 10ml. lp1 Output: 21:00 Urine: 10ml; Total: 10ml. lp1 21:00 Urine: 2ml; Total: 12ml. lp1 Outcome: 21:14 Discharge ordered by . [facility] 21:32 Discharged to home ambulatory. lp1 21:32 Condition: stable 21:32 Discharge instructions given to Instructed on discharge instructions, follow up and referral plans. medication usage, Demonstrated understanding of instructions, follow-up care, medications, Prescriptions given X 4, Following a medical screening exam, the patient was provided information regarding alternative care sites and resources available per registration personnel. 21:33 Patient left the ED. lp1 Signatures: Dispatcher [employer] EDDesmond Hendrix MD MD cha Rivera, Mary mr Luisa Lomax RN RN lp1 Gloria Del Cid RN RN kg
--- NOTE | 2021-01-10 21:15 | EDPHYS ---
Physician Documentation [facility] Name: Emiliano Boothe Age: 35 yrs Sex: Male : 1985 Arrival Date: 01/10/2021 Time: 18:00 Bed Treatment Private MD: RITA Physician Desmond Woody HPI: 01/10 21:12 This 35 yrs old Male presents to ER via Ambulatory with complaints of Cough, junaid Chest Congestion. 21:12 The patient or guardian reports cough, flu symptoms. Onset: The symptoms/episode junaid began/occurred 3 day(s) ago. Severity of symptoms: At their worst the symptoms were mild, in the emergency department the symptoms are unchanged. Modifying factors: The symptoms are alleviated by nothing, the symptoms are aggravated by nothing. Associated signs and symptoms: The patient has no apparent associated signs or symptoms. The patient has not experienced similar symptoms in the past. Historical: - Allergies: 19:11 antibiotic-can't remember name; kg - PMHx: 19:11 GERD; bicuspid aorta; kg - PSHx: 19:11 None; kg - Immunization history:: Adult Immunizations not up to date, Client reports having NOT received the Covid vaccine. - Social history:: Smoking status: Patient denies any tobacco usage or history of. ROS: 21:12 Constitutional: Negative for fever, chills, and weight loss, Eyes: Negative for injury, junaid pain, redness, and discharge, ENT: Negative for injury, pain, and discharge, Neck: Negative for injury, pain, and swelling, Cardiovascular: Negative for chest pain, palpitations, and edema, Abdomen/GI: Negative for abdominal pain, nausea, vomiting, diarrhea, and constipation, Back: Negative for injury and pain, : Negative for injury, bleeding, discharge, and swelling, MS/Extremity: Negative for injury and deformity, Skin: Negative for injury, rash, and discoloration, Neuro: Negative for headache, weakness, numbness, tingling, and seizure, Psych: Negative for depression, anxiety, suicide ideation, homicidal ideation, and hallucinations, Allergy/Immunology: Negative for hives, rash, and allergies, Endocrine: Negative for neck swelling, polydipsia, polyuria, polyphagia, and marked weight changes, Hematologic/Lymphatic: Negative for swollen nodes, abnormal bleeding, and unusual bruising. 21:12 Respiratory: Positive for cough, with no reported sputum. Exam: 21:12 Constitutional: This is a well developed, well nourished patient who is awake, alert, junaid and in no acute distress. Head/Face: Normocephalic, atraumatic. Eyes: Pupils equal round and reactive to light, extra-ocular motions intact. Lids and lashes normal. Conjunctiva and sclera are non-icteric and not injected. Cornea within normal limits. Periorbital areas with no swelling, redness, or edema. ENT: Nares patent. No nasal discharge, no septal abnormalities noted. Tympanic membranes are normal and external auditory canals are clear. Oropharynx with no redness, swelling, or masses, exudates, or evidence of obstruction, uvula midline. Mucous membranes moist. Neck: Trachea midline, no thyromegaly or masses palpated, and no cervical lymphadenopathy. Supple, full range of motion without nuchal rigidity, or vertebral point tenderness. No Meningismus. Chest/axilla: Normal chest wall appearance and motion. Nontender with no deformity. No lesions are appreciated. Cardiovascular: Regular rate and rhythm with a normal S1 and S2. No gallops, murmurs, or rubs. Normal PMI, no JVD. No pulse deficits. Respiratory: Lungs have equal breath sounds bilaterally, clear to auscultation and percussion. No rales, rhonchi or wheezes noted. No increased work of breathing, no retractions or nasal flaring. Abdomen/GI: Soft, non-tender, with normal bowel sounds. No distension or tympany. No guarding or rebound. No evidence of tenderness throughout. Back: No spinal tenderness. No costovertebral tenderness. Full range of motion. Male : Normal genitalia with no discharge or lesions. Skin: Warm, dry with normal turgor. Normal color with no rashes, no lesions, and no evidence of cellulitis. MS/ Extremity: Pulses equal, no cyanosis. Neurovascular intact. Full, normal range of motion. Neuro: Awake and alert, GCS 15, oriented to person, place, time, and situation. Cranial nerves II-XII grossly intact. Motor strength 5/5 in all extremities. Sensory grossly intact. Cerebellar exam normal. Normal gait. Psych: Awake, alert, with orientation to person, place and time. Behavior, mood, and affect are within normal limits. 21:12 Musculoskeletal/extremity: DVT Exam: No signs of deep vein thrombosis. no pain, no swelling, no tenderness, negative Homans' sign noted on exam, no appreciated bluish discoloration, no erythema, no increased warmth. 21:21 ECG was reviewed by the Attending Physician. [facility] Vital Signs: 19:08 BP 121 / 74; Pulse 96; Resp 20; Temp 99.5(TE); Pulse Ox 100% on R/A; Weight 65.77 kg; kg Height 5 ft. 9 in. (175.26 cm); Pain 0/10; 20:36 BP 119 / 67; Pulse 98; Resp 20; Pulse Ox 96% on R/A; lp1 19:08 Body Mass Index 21.41 (65.77 kg, 175.26 cm) kg MDM: 19:41 Patient medically screened. [facility] 21:19 Differential Diagnosis: Bronchitis Influenza Upper Respiratory Infection Sinusitis junaid Pharyngitis Viral Syndrome Pneumonia. Data reviewed: vital signs, nurses notes, lab test result(s), EKG, radiologic studies, plain films. Data interpreted: monitoring analyst: rate is 98 beats/min, rhythm is regular. Test interpretation: by ED physician or midlevel provider: ECG, plain radiologic studies. Counseling: I had a detailed discussion with the patient and/or guardian regarding: the historical points, exam findings, and any diagnostic results supporting the discharge/admit diagnosis, lab results, radiology results, the need for outpatient follow up, for definitive care, a family practitioner, a last scourer. 01/10 19:41 Order name: CBC with Diff [facility] 01/10 19:41 Order name: Comprehensive Metabolic Panel; Complete Time: 21:08 [facility] 01/10 19:41 Order name: D-Dimer; Complete Time: 21:08 [facility] 01/10 19:41 Order name: Troponin (emerg Dept Use Only); Complete Time: 21:08 [facility] 01/10 19:41 Order name: CBC with Automated Diff; Complete Time: 21:08 EDMS 01/10 19:15 Order name: XRAY Chest Pa And Lat (2 Views); Complete Time: 21:08 kg 01/10 19:41 Order name: EKG; Complete Time: 19:42 [facility] 01/10 19:41 Order name: EKG - Nurse/Tech; Complete Time: 20:39 [facility] EC:21 Rate is 86 beats/min. Rhythm is regular. QRS [place] is Normal. [place] interval is normal. QRS junaid interval is normal. QT interval is normal. No Q waves. T waves are Normal. Clinical impression: Normal ECG and No evidence of ischemia. Interpreted by me. Reviewed by me. Administered Medications: 20:32 Drug: Pepcid (famotidine) 20 mg Route: IVP; Site: left antecubital; lp1 21:00 Follow up: Urine output 2 ml; Response: No adverse reaction lp1 21:35 Follow up: Response: No adverse reaction lp1 20:32 Drug: Rocephin (cefTRIAXone) 1 grams Route: IV; Rate: per protocol; Site: left lp1 antecubital; 21:00 Follow up: Urine output 10 ml; Response: No adverse reaction lp1 21:34 Follow up: Response: No adverse reaction lp1 21:38 Follow up: IV Status: Completed infusion; IV Intake: 10ml lp1 20:32 Drug: Aspirin Chewable Tablet 162 mg Route: PO; lp1 21:00 Follow up: Response: No adverse reaction lp1 21:34 Follow up: Response: No adverse reaction lp1 20:33 Drug: Motrin (ibuprofen) 600 mg Route: PO; lp1 21:00 Follow up: Response: No adverse reaction lp1 21:34 Follow up: Response: No adverse reaction lp1 21:35 Follow up: Response: No adverse reaction lp1 21:20 Not Given ( changed order from IV to PO): Zithromax (azithromycin) 500 mg IVPB once lp1 over 1 hrs; mix in 250 mL NS 21:34 Drug: AZITHromycin 500 mg Route: PO; lp1 21:35 Follow up: Response: No adverse reaction lp1 Disposition Summary: 01/10/21 21:14 Discharge Ordered Location: Home junaid Problem: new junaid Symptoms: have improved junaid Condition: Stable junaid Diagnosis - Acute upper respiratory infection, unspecified junaid - Contact with and (suspected) exposure to other viral communicable diseases - COVID junaid 19 Followup: junaid - With: Private Physician - When: 2 - 3 days - Reason: Recheck today's complaints, Continuance of care, Re-evaluation by your physician Followup: junaid - With: Klaus Marcus MD - When: 2 - 3 days - Reason: Recheck today's complaints, Continuance of care, Re-evaluation by your physician Discharge Instructions: - Discharge Summary Sheet junaid - Upper Respiratory Infection, Adult junaid - Cool Mist Vaporizer junaid - Upper Respiratory Infection, Adult, [id number] junaid - Cough, Adult, [id number] junaid - Aspirin and Your Heart junaid - COVID-19 junaid - COVID-19: Quarantine vs. Isolation - [facility] Forms: - Medication Reconciliation Form [facility] - Thank You Letter [facility] - Antibiotic Education [facility] - Prescription Opioid Use [facility] Prescriptions: - albuterol sulfate 90 mcg/actuation Inhalation HFA aerosol inhaler - inhale 2 puff by INHALATION route every 6 hours; 1 Pump; Refills: 0, Product [facility] Selection Permitted - ivermectin 3 mg Oral tablet - take 4 tablet by ORAL route once daily; 20 tablet; Refills: 0, Product [facility] Selection Permitted - Pepcid 20 mg Oral Tablet - take 1 tablet by ORAL route every 12 hours for 10 days; 20 tablet; Refills: 0, [facility] Product Selection Permitted - Zithromax 500 mg Oral Tablet - take 1 tablet by ORAL route once daily for 5 days; 5 tablet; Refills: 0, [facility] Product Selection Permitted Signatures: Dispatcher [employer] EDMS Desmond Woody MD MD cha Pena, Laura RN RN lp1 Gloria Del Cid RN RN kg Corrections: (The following items were deleted from the chart) 20:34 19:15 CORONAVIRUS+BRZ ordered. [facility] EDMS
[2021-01-10 21:38] VITALS: TEMP 99.5
[2021-01-10 21:40] VITALS: BP 119/67; O2SAT 96
[2021-01-10] MEDS ORDERED: AZITHROMYCIN 250 MG TAB ONE (21:46)
--- NOTE | 2021-01-11 07:32 | EKG ---
Test Date: 2021-01-10 Test Time: 20:22:08 Cork Insulation Installer: MICHELLE MEASUREMENT RESULTS: Intervals: Rate: 92 NV: 142 QRSD: 84 QT: 368 QTc: 455 Corinne: P: 65 NV: 142 QRS: 28 T: 54 INTERPRETIVE STATEMENTS: Normal sinus rhythm with sinus arrhythmia Normal ECG Compared to ECG 01/23/2020 12:43:17 No significant changes Electronically Signed On 01-11-21 07:31:01 CDT by Mukul Davidson
--- NOTE | 2021-01-11 13:02 | EKG ---
Test Date: 2021-01-10 Test Time: 20:22:43 Screen Tender Helper: MICHELLE MEASUREMENT RESULTS: Intervals: Rate: 86 WV: 138 QRSD: 86 QT: 374 QTc: 447 [place]: P: 69 WV: 138 QRS: 37 T: 56 INTERPRETIVE STATEMENTS: Normal sinus rhythm with sinus arrhythmia Normal ECG Compared to ECG 01/10/2021 20:22:08 No significant changes Electronically Signed On 01-11-21 12:59:24 CDT by Mukul Davidson
== END 2021-01-10 21:33 | disposition home or self-care (01) ==
LOC: ER 17:57
DX: J06.9 Acute upper respiratory infection, unspecified (principal); Z20.822 Contact with and (suspected) exposure to COVID-19
CPT/HCPCS: 36415; 71046; 80053; 84484; 85025; 85379; 93005; 96365; 96375; 99284; J0696; U0003